=== PATIENT | male | born 1980 | race Caucasian/White ===

== ENCOUNTER 2017-04-15 19:31 | Observation (INO) | payer OTHER ==
[~2017-04-15] VITALS: Ht 175.3 cm; Wt 82.6 kg
[2017-04-15] MEDS ORDERED: DILTIAZEM 25 MG/5 ML INJ (CARDIZEM) VIAL ONE (19:39)
[2017-04-15] MEDS ORDERED: DILTIAZEM 100 MG/VIAL (CARDIZEM) ADD-VANTAGE IV ONE (19:39)
[2017-04-15] MEDS ORDERED: SODIUM CHLORIDE (ADD-VANTAGE) 100 ML IV ONE (19:39)
[2017-04-15] MEDS ORDERED: NS IV 1000 ML 1,000 ML IV ONE ×2 (19:43→20:06)
--- NOTE | 2017-04-15 19:43 | ED Cardiac General ---
History of Present Illness General Stated Complaint: IRREGULAR HEARTBEAT Source: patient Exam Limitations: no limitations History of Present Illness Time seen by provider: 19:39 Initial Comments Patient presents to ER by private conveyance with chief complaint of heart racing that started approximately one day before. He says he's had this in the past but easily male would get out by doing vagal maneuvers. He's been trying the best day as well as resting and has not been able to get it better. At home he says his heart rate was running in the 180s to 220s. He says he has a history of Zrykb-Xiteliaal-Prznf. He is not on any medications not have any other current medical history or history of coronary disease. He does smoke half pack a day. He is having chest pressure in the middle of his chest and feels tired. No shortness of breath nausea or vomiting. No numbness or weakness. Allergies and Home Medications Allergies Coded Allergies: No Known Drug Allergies (Unverified , 04/15/17) Review of Systems Constitutional: No chills, No diaphoresis, No fever, No malaise, weakness EENTM: No Blurred Vision, No Double Vision Respiratory: Denies Cough, Denies Shortness of Air, Denies SOA With Exertion, Denies Wheezing Cardiovascular: See HPI (chest pressure), Denies Chest Pain, Denies Edema, Irregular Heart Rate, Lightheadedness, Palpitations, Denies Syncope Gastrointestinal: Denies Abdomen Distended, Denies Abdominal Pain, Denies Diarrhea, Denies Nausea Genitourinary: Denies Burning, Denies Discharge Musculoskeletal: No joint pain, No joint swelling Skin: No pruritus, No rash Psychiatric/Neurological: Denies Headache, Denies Numbness Endocrine: Denies Intolerance to Cold, Denies Intolerance to Heat, Denies Unexplained Weight Gain, Denies Unexplaned Weight Loss Past Gjbnrdl-Mhncha-Clcxhj Hx Patient Social History Alcohol Use: Denies Use Recreational Drug Use: No Smoking Status: Current Everyday Smoker Type Used: Cigarettes (one half pack per day) Recent Foreign Travel: No Contact w/Someone Who Travel: No Physical Exam Vital Signs Vital Sign - Last 12Hours 04/15/17 19:36 Temp 97.5 Pulse 217 Resp 18 B/P (MAP) 107/82 Pulse Ox 99 O2 Delivery Room Air Capillary Refill : Less than 3 seconds General Appearance: WD/WN, Mild Distress HEENT: PERRL/EOMI, Pharynx Normal Neck: Normal Inspection, Non Tender Respiratory: Lungs Clear, Normal Breath Sounds Cardiovascular: No Edema, No Murmur, Tachycardia Gastrointestinal: Non Tender, Soft Extremity: Normal Capillary Refill, No Calf Tenderness Neurologic/Psychiatric: Alert, Oriented x3, Normal Mood/Affect Skin: Normal Color, Warm/Dry Lymphatic: No Adenopathy Procedure: synced cardioversion Patient Education: Explained Benefits, Explained Risks, Pt. Ack. Understanding Agreement on procedure with pt: Yes Breath Sounds per Auscultation: Clear Heart Sounds per Auscultation: Irregular Airway Exam: Mouth opens >2 fingers, Neck Full Range of Motion, Visulation of Uvula Sedation Adminstration Time: 20:25 Total Time spent in CS 5 min Progress/Conclusion The nursing notes for dosing on fentanyl and Versed given to achieve a good relaxed state where shock could be delivered 1. Re-examination Time: 20:40 Re-examination Patient arouses easily to verbal and follows commands. No snoring. Airway intact. Vital signs normal. Progress/Results/Core Measures Results/Orders Lab Results Laboratory Tests Test 04/15/17 19:44 Range/Units White Blood Count 10.2 4.3-11.0 10^3/uL Red Blood Count 5.26 4.35-5.85 10^6/uL Hemoglobin 16.5 13.3-17.7 G/DL Hematocrit 48 40-54 % Mean Corpuscular Volume 91 80-99 FL Mean Corpuscular Hemoglobin 31 25-34 PG Mean Corpuscular Hemoglobin Concent 35 32-36 G/DL Red Cell Distribution Width 12.6 10.0-14.5 % Platelet Count 297 130-400 10^3/uL Mean Platelet Volume 10.9 H 7.4-10.4 FL Neutrophils (%) (Auto) 56 42-75 % Lymphocytes (%) (Auto) 30 12-44 % Monocytes (%) (Auto) 10 0-12 % Eosinophils (%) (Auto) 3 0-10 % Basophils (%) (Auto) 1 0-10 % Neutrophils # (Auto) 5.6 1.8-7.8 X 10^3 Lymphocytes # (Auto) 3.1 1.0-4.0 X 10^3 Monocytes # (Auto) 1.0 0.0-1.0 X 10^3 Eosinophils # (Auto) 0.3 0.0-0.3 10^3/uL Basophils # (Auto) 0.1 0.0-0.1 10^3/uL Sodium Level 140 135-145 MMOL/L Potassium Level 4.3 3.6-5.0 MMOL/L Chloride Level 105 98-107 MMOL/L Carbon Dioxide Level 23 21-32 MMOL/L Anion Gap 12 5-14 MMOL/L Blood Urea Nitrogen 15 7-18 MG/DL Creatinine 1.34 H 0.60-1.30 MG/DL Estimat Glomerular Filtration Rate > 60 BUN/Creatinine Ratio 11 Glucose Level 96 70-105 MG/DL Calcium Level 10.2 H 8.5-10.1 MG/DL Magnesium Level 2.1 1.8-2.4 MG/DL Total Bilirubin 1.1 H 0.1-1.0 MG/DL Aspartate Amino Transf (AST/SGOT) 18 5-34 U/L Alanine Aminotransferase (ALT/SGPT) 14 0-55 U/L Alkaline Phosphatase 61 40-136 U/L Troponin I < 0.30 <0.30 NG/ML Total Protein 7.4 6.4-8.2 GM/DL Albumin 4.7 H 3.2-4.5 GM/DL Thyroid Stimulating Hormone (TSH) 1.58 0.35-4.94 UIU/ML My Orders Orders - RENEE SEO Diltiazem Injection (Cardizem Injection) (04/15/17 19:45) Cbc With Automated Diff (04/15/17 19:43) Comprehensive Metabolic Panel (04/15/17 19:43) Magnesium (04/15/17 19:43) Thyroid Stimulating Hormone (04/15/17 19:43) Troponin I (04/15/17 19:43) Chest 1 View, Ap/Pa Only (04/15/17 19:43) Ekg Tracing (04/15/17 19:43) Saline Lock/Iv-Start (04/15/17 19:43) Monitor-Rhythm Ecg Trace Only (04/15/17 19:43) Saline Lock/Iv-Start (04/15/17 19:43) Ns Iv 1000 Ml (Sodium Chloride 0.9%) (04/15/17 19:43) Sodium Chloride (Ad... W/Diltiazem Drip (04/15/17 19:45) Diltiazem Injection (Cardizem Injection) (04/15/17 19:39) Sodium Chloride (Add-[place]) (Ns (Add-V (04/15/17 19:39) Diltiazem Drip (Cardizem Drip) (04/15/17 19:39) Diltiazem Injection (Cardizem Injection) (04/15/17 20:00) Promethazine Injection (Phenergan Injec (04/15/17 20:15) Ns Iv 1000 Ml (Sodium Chloride 0.9%) (04/15/17 20:06) Ns Iv 1000 Ml (Sodium Chloride 0.9%) (04/15/17 20:45) Medications Given in ED Current Medications Medications Dose Ordered Sig/Louise Route Start Time Stop Time Status Last Admin Dose Admin Sodium Chloride 1,000 ml @ 0 mls/hr Q0M ONCE IV 04/15/17 19:43 04/15/17 19:45 DC 04/15/17 20:12 1,000 MLS/HR Sodium Chloride 1,000 ml @ 0 mls/hr Q0M ONCE IV 04/15/17 20:06 04/15/17 20:08 DC 04/15/17 19:57 1,000 MLS/HR Vital Signs/I&O Vital Sign - Last 12Hours 04/15/17 19:36 Temp 97.5 Pulse 217 Resp 18 B/P (MAP) 107/82 Pulse Ox 99 O2 Delivery Room Air Progress Note : Time: 19:55 Progress Note Patient states he has a history of Raeqv-Nzxsxoyfb-Gmudh come in with 1 day of tachycardia. He is in SVT with marginally wide complexes. We have given him the first initial bolus of weight-based Cardizem and started a drip at 10 mils per min and if this does not improve in the first 10 minutes we'll going give him a second bolus of 0.350 mg/kg over 2 minutes. Of some chest pressure the patient is otherwise stable. His blood pressure right around 100s systolic aware pushing fluids. Serum get him out of SVT medicine or his blood pressure will improve. Consults Consults : Consulting Physician: JESSICA HUDSON MD Consults Notes Determine the patient to be in a wide-complex tachycardia unstable given his systolic blood pressure of 98 so conscious sedation was initiated using Versed and fentanyl and the patient was given 1 synced cardioversion shock of 120 J which immediately returned him to a normal atrial paced rhythm. Patient tolerated procedure well. Critical Care Note Critical Care Start Time: 20:00 Stop Time: 20:30 Total Time (minutes) Patient presented and a SVT with what appeared to be narrow complexes. Initial 0.25 mg/kg Cardizem was pushed but no benefit and his heart rate remained in the 180s. His systolic state right about 100-110. He was given another 0.35 mg/ kg gram of Cardizem and his heart rate remained in the 180s to 200 range. His systolic slipped into the 90s. EKG revealed a QRS of 124 ms which would indicate a wide complex tachycardia that was irregular more consistent with atrial fibrillation driven through the aberrant clinical pathway. Dr. Hudson was called and presented to the ER examine the patient and the EKG and determined that he was an unstable irregular wide complex tachycardia in need of cardioversion. Paddles were on him and gave him fentanyl and Versed to sedate him and gave him 120 J single phase cardioversion shock. He immediately converted into a sinus rhythm around 98. He tolerated the procedure well. Departure Communication Time/Spoke to Admitting Phy: 20:[address] Hudson will admit the patient to cardiac stepdown and follow him overnight. He is okay with IV fluids and leg the patient eat drinking get move around. It is doing well in the morning they'll let him go home. Impression Impression: Primary Impression: Wide-complex tachycardia Additional Impressions: Patricia Parkinson White pattern seen on electrocardiogram Encounter for cardioversion procedure Disposition: ADMITTED INPATIENT (observation cardiac stepdown) Condition: Improved Admissions Decision to Admit Reason: Admit from ER (General) Decision to Admit/Date: Apr 15, 2017 Time/Decision to Admit Time: 20:41 Departure-Patient Inst. Referrals: NO,LOCAL PHYSICIAN (PCP/Family) Primary Care Physician Copy Copies To 1: JESSICA HUDSON MD, TITUS J Apr 15, 2017 19:43
[2017-04-15] MEDS ORDERED: DILTIAZEM DRIP 100 MG in SODIUM CHLORIDE (ADD-VANTAGE) 100 ML IV SCH (19:45)
[2017-04-15] MEDS ORDERED: fentaNYL INJECTION 100 MCG/2 ML AMP INJ ONE (19:45)
[2017-04-15] MEDS ORDERED: MIDAZOLAM 5 MG/5 ML (VERSED) VIAL INJ ONE (19:45)
[2017-04-15] MEDS ORDERED: DILTIAZEM 25 MG/5 ML INJ (CARDIZEM) VIAL IVP ONE ×2 (19:45→20:00)
[2017-04-15 19:53] LABS: BASOPHILS # (AUTO) 0.1 10^3/uL (0.0-0.1); BASOPHILS % (AUTO) 1 % (0-10); EOSINOPHILS # (AUTO) 0.3 10^3/uL (0.0-0.3); EOSINOPHILS % (AUTO) 3 % (0-10); LYMPHOCYTES # (AUTO) 3.1 X 10^3 (1.0-4.0); LYMPHOCYTES % (AUTO) 30 % (12-44); MEAN CORPUSCULAR HEMOGLOBIN 31 PG (25-34); MEAN CORPUSCULAR HGB CONC 35 G/DL (32-36); MEAN CORPUSCULAR VOLUME 91 FL (80-99); MEAN PLATELET VOLUME 10.9 FL (7.4-10.4); MONOCYTES % (AUTO) 10 % (0-12); NEUTROPHILS # (AUTO) 5.6 X 10^3 (1.8-7.8); NEUTROPHILS % (AUTO) 56 % (42-75); PLATELET COUNT 297 10^3/uL (130-400); RED BLOOD COUNT 5.26 10^6/uL (4.35-5.85); RED CELL DISTRIBUTION WIDTH 12.6 % (10.0-14.5); WHITE BLOOD COUNT 10.2 10^3/uL (4.3-11.0)
[2017-04-15] MEDS ORDERED: PROMETHAZINE INJ 25 MG/ML (PHENERGAN) AMP IVP ONE (20:15)
[2017-04-15 20:26] LABS: ALANINE AMINOTRANSFERASE 14 U/L (0-55); ALBUMIN 4.7 GM/DL (3.2-4.5); ANION GAP 12 MMOL/L (5-14); ASPARTATE AMINO TRANSFERASE 18 U/L (5-34); BILIRUBIN,TOTAL 1.1 MG/DL (0.1-1.0); BLOOD UREA NITROGEN 15 MG/DL (7-18); BUN/CREATININE RATIO 11; CALCIUM 10.2 MG/DL (8.5-10.1); CARBON DIOXIDE 23 MMOL/L (21-32); CHLORIDE 105 MMOL/L (98-107); CREATININE SERUM 1.34 MG/DL (0.60-1.30); GFR ESTIMATED > 60; GLUCOSE 96 MG/DL (70-105); MAGNESIUM 2.1 MG/DL (1.8-2.4); POTASSIUM 4.3 MMOL/L (3.6-5.0); SODIUM 140 MMOL/L (135-145); TOTAL PROTEIN 7.4 GM/DL (6.4-8.2)
--- NOTE | 2017-04-15 20:40 | Cardiology History & Physical ---
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 Was in his usual state of health, started having palpitation around 10 a.m., continue to have palpitation and some chest tightness, came into the emergency room and noted to have wide- complex tachycardia with a heart rate 160-180, variable rate, irregular, had mild chest discomfort, denied any similar episode in the past, reported that he has history of WPW in the remote past which did not interfere with his life. Had occasional palpitation. No syncope or near syncopal episodes. No claudications. Patient was started on Cardizem drip in the emergency room and he was borderline hypotensive. Upon my evaluation I felt that it is wide- complex tachycardia requiring electrical cardioversion. PMH-Cardiology Other PMHx Other PMHx: WPW Social History Patient Social History Marrital Status: domestic partnership Employed/Student: employed Alcohol Use: Denies Use Recreational Drug Use: No Smoking: Current every day smoker Recent Foreign Travel: No Contact w/other who traveled: No Family Hx Other Noncontributory to his current condition ROS-Cardiology Review of Systems General: No Chills, No Night Sweats, No Fatigue, No Malaise, No Appetite HEENT: No Head Aches, No Visual Changes, No Eye Pain, No Ear Pain, No Dysphasia , No Sinus Congestion, No Post Nasal Drip, No Sore Throat Pulmonary: No Dyspnea, No Cough, No Pleuritic Chest Pain Cardiovascular: Chest Pain, Palpitations, No: Edema, Lt Headedness, Orthopnea, Paroxysmal Noc. Dyspnea Gastrointestinal: No: Abdominal Pain, Constipation, Diarrhea, Hematochezia, Melena, Nausea, Vomiting Genitourinary: No Dysuria, No Frequency, No Incontinence, No Hematuria, No Retention Musculoskeletal: No: arm pain, back pain, foot pain, hand pain, leg pain, neck pain, shoulder pain Neurological: No: Change in speech, Confusion, Incoordination, Numbness, Seizures, Weakness Home Medications & Allergies Allergies: Coded Allergies: No Known Drug Allergies (Unverified , 04/15/17) Home Medication List Reviewed: Yes Exam-Cardiology Exam General Appearance: Alert, Oriented X3, Cooperative, No Acute Distress HEENT: Atraumatic, PERRLA Respiratory: Clear to Auscultation, Normal Air Movement Cardiovascular: Normal S1, Normal S2, No Murmurs, Other (tachycardia) Abdominal: Normal Bowel Sounds, Soft, No Tenderness, No Hepatosplenomegaly, No Masses Extremities: No Clubbing, No Cyanosis, No Edema, Normal Pulses, No Tenderness/ Swelling Skin: No Rashes, No Breakdown, No Significant Lesion Neuro: Normal Gait, Normal Speech, Strength at 5/5 X4 Ext, Normal Tone, Sensation Intact Psych/Mental Status: Mental Status NL, Mood NL Results Labs Labs Laboratory Tests 04/15/17 19:44: White Blood Count 10.2, Red Blood Count 5.26, Hemoglobin 16.5, Hematocrit 48, Mean Corpuscular Volume 91, Mean Corpuscular Hemoglobin 31, Mean Corpuscular Hemoglobin Concent 35, Red Cell Distribution Width 12.6, Platelet Count 297, Mean Platelet Volume 10.9H, Neutrophils (%) (Auto) 56, Lymphocytes (%) (Auto) 30 , Monocytes (%) (Auto) 10, Eosinophils (%) (Auto) 3, Basophils (%) (Auto) 1, Neutrophils # (Auto) 5.6, Lymphocytes # (Auto) 3.1, Monocytes # (Auto) 1.0, Eosinophils # (Auto) 0.3, Basophils # (Auto) 0.1, Sodium Level 140, Potassium Level 4.3, Chloride Level 105, Carbon Dioxide Level 23, Anion Gap 12, Blood Urea Nitrogen 15, Creatinine 1.34H, Estimat Glomerular Filtration Rate > 60, BUN /Creatinine Ratio 11, Glucose Level 96, Calcium Level 10.2H, Magnesium Level 2.1 , Total Bilirubin 1.1H, Aspartate Amino Transf (AST/SGOT) 18, Alanine Aminotransferase (ALT/SGPT) 14, Alkaline Phosphatase 61, Total Protein 7.4, Albumin 4.7H A/P-Cardiology Admission Diagnosis Wide-complex tachycardia WPW Chest pain nonspecific etiology Palpitation Assessment/Plan Wide-complex tachycardia, WPW, probably atrial fibrillation with aberrant conduction. Borderline hypotensive, I proceeded with electrical cardioversion which was successful. Patient return to sinus rhythm, asymptomatic Tobaccoism, educated on smoking cessation Chest pain, secondary to tachycardia. Continue to monitor overnight Palpitation, secondary to tachycardia. Improved JESSICA HUDSON MD Apr 15, 2017 20:40
--- NOTE | 2017-04-15 20:41 | Cardiac Procedure Note-CS/ASA ---
Pre-Procedure Note Pre-Op Procedure Note H&P Reviewed The H&P was reviewed, patient examined and no changes noted. Date H&P Reviewed: Apr 15, 2017 Time H&P Reviewed: 20:00 Conscious Sedation Pre-Proced Time Reviewed: 20:00 ASA Class: 3 Airway Mallampati Classification: (sauk-[place] appropriate class) I. II. III, IV Lungs Heart ASA score ASA 1: a normal healthy patient ASA 2: a patient with a mild systemic disease (mid diabetes, controlled hypertension, obesity x ASA 3: a patient with a severe systemic disease that limits activity (angina , COPD, prior Myocardial infarction) ASA 4: a patient with an incapacitating disease that is a constant threat to life (CHF, renal failure) ASA 5: a moribund patient not expected to survive 24 hrs. (ruptured aneurysm) ASA 6: a declared brain patient whose organs are being harvested. For emergent operations, add the letter E after the classification Grade 3 Sedation Plan: Analgesia, Amnesia, Plan communicated to team members, Discussed options with patient/fam, Discussed risks with patient/fam Note The patient is an appropriate candidate to undergo the planned procedure, sedation, and anesthesia. The patient immediately re-assessed prior to indication. JESSICA HUDSON MD Apr 15, 2017 20:41
--- NOTE | 2017-04-15 20:42 | Cardiac Procedure Note ---
Cardiology Procedures Date of Procedure 04/15/17 Electrical cardioversion Patient was sedated using 4 mg of Versed, 50 mg of fentanyl, synchronized DC cardioversion delivered at 120 J successful in terminating wide-complex tachycardia return to sinus rhythm, EKG showed sinus rhythm with WPW Conclusion Successful electrical cardioversion without complication JESSICA HUDSON MD Apr 15, 2017 20:42
[2017-04-15] MEDS ORDERED: NS IV 1000 ML 1,000 ML IV SCH (20:45)
[2017-04-15 20:46] LABS: THYROID STIMULATING HORMONE 1.58 UIU/ML (0.35-4.94); TROPONIN I < 0.30 NG/ML (<0.30)
--- NOTE | 2017-04-15 21:10 | Diagnostic Imaging Report ---
INDICATION: Supraventricular tachycardia. COMPARISON: None. EXAMINATION: Single frontal view of the chest was obtained. FINDINGS: Normal heart size and pulmonary vascularity. The lungs are well aerated and clear. No large pleural effusion or pneumothorax is seen. The visualized osseous structures show no acute abnormalities. IMPRESSION: No acute cardiopulmonary process. Dictated by: Dictated on workstation # [id number]
[2017-04-15] MEDS ORDERED: ONDANSETRON 4 MG/2 ML (SDV) Z0FRAN IV PRN (22:00)
[2017-04-15] MEDS ORDERED: ACETAMINOPHEN 325 MG TABLET/CAPLET (TYLENOL) PO PRN (22:00)
[2017-04-15] MEDS: NS IV 1000 ML 1,000 ML IV SCH ×2 (22:15→23:31)
[2017-04-15] MEDS ORDERED: ENOXAPARIN 80 MG/0.8 ML (LOVENOX) SYR SC ONE (22:45)
[2017-04-16] VITALS: BP 108/72
[2017-04-16 04:00] VITALS: BP 110/80
[2017-04-16] MEDS ORDERED: DILTIAZEM 25 MG/5 ML INJ (CARDIZEM) VIAL IVP ONE (04:15)
[2017-04-16] MEDS ORDERED: DILTIAZEM DRIP 100 MG in SODIUM CHLORIDE (ADD-VANTAGE) 100 ML IV SCH (04:15)
[2017-04-16 05:45] LABS: BASOPHILS % (AUTO) 1 % (0-10); EOSINOPHILS # (AUTO) 0.3 10^3/uL (0.0-0.3); EOSINOPHILS % (AUTO) 4 % (0-10); LYMPHOCYTES % (AUTO) 39 % (12-44); MEAN CORPUSCULAR HEMOGLOBIN 32 PG (25-34); MEAN CORPUSCULAR HGB CONC 34 G/DL (32-36); MEAN CORPUSCULAR VOLUME 93 FL (80-99); MEAN PLATELET VOLUME 11.3 FL (7.4-10.4); MONOCYTES # (AUTO) 0.5 X 10^3 (0.0-1.0); MONOCYTES % (AUTO) 7 % (0-12); NEUTROPHILS # (AUTO) 3.8 X 10^3 (1.8-7.8); NEUTROPHILS % (AUTO) 50 % (42-75); PLATELET COUNT 223 10^3/uL (130-400); RED CELL DISTRIBUTION WIDTH 12.6 % (10.0-14.5); WHITE BLOOD COUNT 7.7 10^3/uL (4.3-11.0)
[2017-04-16 06:03] LABS: ANION GAP 10 MMOL/L (5-14); BLOOD UREA NITROGEN 17 MG/DL (7-18); BUN/CREATININE RATIO 17; CALCIUM 8.1 MG/DL (8.5-10.1); CARBON DIOXIDE 21 MMOL/L (21-32); CHLORIDE 110 MMOL/L (98-107); CREATININE SERUM 0.98 MG/DL (0.60-1.30); GFR ESTIMATED > 60; GLUCOSE 111 MG/DL (70-105); POTASSIUM 3.8 MMOL/L (3.6-5.0); SODIUM 141 MMOL/L (135-145)
[2017-04-16 06:16] LABS: TROPONIN I < 0.30 NG/ML (<0.30)
[2017-04-16 08:00] VITALS: BP 110/75
--- NOTE | 2017-04-16 09:22 | Short Stay Summary ---
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 Was in his usual state of health, started having palpitation around 10 a.m., continue to have palpitation and some chest tightness, came into the emergency room and noted to have wide- complex tachycardia with a heart rate 160-180, variable rate, irregular, had mild chest discomfort, denied any similar episode in the past, reported that he has history of WPW in the remote past which did not interfere with his life. Had occasional palpitation. No syncope or near syncopal episodes. No claudications. Patient was started on Cardizem drip in the emergency room and he was borderline hypotensive. Upon my evaluation I felt that it is wide- complex tachycardia requiring electrical cardioversion. Patient was monitored overnight no further episodes of tachycardia arrhythmia were noted Date of Admission Apr 15, 2017 at 20:40 Date of Discharge April 16, 2017 Time Seen by Provider: 09:26 Attending Physician Jessica Fields MD Admitting Physician No,Local Physician Consult JESSICA FIELDS MD Allergies and Home Medications Allergies Coded Allergies: No Known Drug Allergies (Unverified , 04/15/17) Home Medications No Active Prescriptions or Reported Meds Past Rqekica-Ejswqn-Uufbnh Hx Patient Social History Marrital Status: domestic partnership Employed/Student: employed Alcohol Use: Denies Use Recreational Drug Use: No Smoking Status: Current Everyday Smoker Type Used: Cigarettes Physical Abuse Screen: No Sexual Abuse: No Recent Foreign Travel: No Contact w/other who traveled: No Recent Hopitalizations: No Recent Infectious Disease Expo: No Seasonal Allergies Seasonal Allergies: No Constitutional: see HPI EENTM: see HPI Respiratory: see HPI Cardiovascular: see HPI Gastrointestinal: see HPI Genitourinary: see HPI Musculoskeletal: see HPI Skin: see HPI Psychiatric/Neurological: No Symptoms Reported, See HPI Physical Exam Vital Signs Vital Sign - Last 12Hours 04/15/17 04/15/17 19:36 20:16 Temp 97.5 Pulse 217 Resp 18 B/P (MAP) 107/82 Pulse Ox 99 O2 Delivery Room Air O2 Flow Rate 2.00 Capillary Refill : Less Than 3 Seconds General Appearance: No Apparent Distress, WD/WN Eyes: Bilateral Eye EOMI, Bilateral Eye Normal Inspection, Bilateral Eye PERRL HEENT: PERRL/EOMI, TMs Normal, Normal ENT Inspection, Pharynx Normal Neck: Full Range of Motion, Normal Inspection, Non Tender, Supple, Carotid Bruit Respiratory: Chest Non Tender, Lungs Clear, Normal Breath Sounds, No Accessory Muscle Use, No Respiratory Distress Cardiovascular: Regular Rate, Rhythm, No Edema, No Gallop, No JVD, No Murmur, Normal Peripheral Pulses Gastrointestinal: Normal Bowel Sounds, No Organomegaly, No Pulsatile Mass, Non Tender, Soft Back: Normal Inspection, No CVA Tenderness, No Vertebral Tenderness Extremity: Normal Capillary Refill, Normal Inspection, Normal Range of Motion, Non Tender, No Calf Tenderness, No Pedal Edema Neurologic/Psychiatric: Alert, Oriented x3, No Motor/Sensory Deficits, Normal Mood/Affect Skin: Normal Color, Warm/Dry Lymphatic: No Adenopathy Clinical Quality Measures DVT/VTE Risk/Contraindication: Risk Factor Score Per Nursin RFS Level Per Nursing on Admit: 1=Low/No VTE PPX Short Stay Diagnosis Discharge Diagnosis-Short Stay Admission Diagnosis: WPW Tachycardia White complex tachycardia Chest pain nonspecific. Palpitation Final Discharge Diagnosis: wide-complex tachycardia WPW Chest pain nonspecific etiology Palpitation Conclusion Labs Laboratory Tests 04/15/17 19:44: White Blood Count 10.2, Red Blood Count 5.26, Hemoglobin 16.5, Hematocrit 48, Mean Corpuscular Volume 91, Mean Corpuscular Hemoglobin 31, Mean Corpuscular Hemoglobin Concent 35, Red Cell Distribution Width 12.6, Platelet Count 297, Mean Platelet Volume 10.9H, Neutrophils (%) (Auto) 56, Lymphocytes (%) (Auto) 30 , Monocytes (%) (Auto) 10, Eosinophils (%) (Auto) 3, Basophils (%) (Auto) 1, Neutrophils # (Auto) 5.6, Lymphocytes # (Auto) 3.1, Monocytes # (Auto) 1.0, Eosinophils # (Auto) 0.3, Basophils # (Auto) 0.1, Sodium Level 140, Potassium Level 4.3, Chloride Level 105, Carbon Dioxide Level 23, Anion Gap 12, Blood Urea Nitrogen 15, Creatinine 1.34H, Estimat Glomerular Filtration Rate > 60, BUN /Creatinine Ratio 11, Glucose Level 96, Calcium Level 10.2H, Magnesium Level 2.1 , Total Bilirubin 1.1H, Aspartate Amino Transf (AST/SGOT) 18, Alanine Aminotransferase (ALT/SGPT) 14, Alkaline Phosphatase 61, Troponin I < 0.30, Total Protein 7.4, Albumin 4.7H, Thyroid Stimulating Hormone (TSH) 1.58 04/16/17 04:55: White Blood Count 7.7, Red Blood Count 4.10L, Hemoglobin 13.1#L, Hematocrit 38L , Mean Corpuscular Volume 93, Mean Corpuscular Hemoglobin 32, Mean Corpuscular Hemoglobin Concent 34, Red Cell Distribution Width 12.6, Platelet Count 223, Mean Platelet Volume 11.3H, Neutrophils (%) (Auto) 50, Lymphocytes (%) (Auto) 39 , Monocytes (%) (Auto) 7, Eosinophils (%) (Auto) 4, Basophils (%) (Auto) 1, Neutrophils # (Auto) 3.8, Lymphocytes # (Auto) 3.0, Monocytes # (Auto) 0.5, Eosinophils # (Auto) 0.3, Basophils # (Auto) 0.0, Sodium Level 141, Potassium Level 3.8, Chloride Level 110H, Carbon Dioxide Level 21, Anion Gap 10, Blood Urea Nitrogen 17, Creatinine 0.98, Estimat Glomerular Filtration Rate > 60, BUN/ Creatinine Ratio 17, Glucose Level 111H, Calcium Level 8.1L, Troponin I < 0.30 Conclusion/Plan Wide-complex tachycardia, WPW, probably atrial fibrillation with aberrant conduction. status post electrical cardioversion, maintained sinus rhythm and no further dyspnea was noted Tobaccoism, educated on smoking cessation Chest pain, secondary to tachycardia. Continue to monitor overnight Palpitation, secondary to tachycardia. Improved JESSICA FIELDS MD Apr 16, 2017 09:22
[2017-04-16 10:12] VITALS: BP 110/75
== END 2017-04-16 09:28 | disposition home or self-care (01) ==
LOC: ER 19:35 → ICU 20:40 → UNDOADMOB 20:40 → ICU 21:43 → UNDODISOB 04-16 10:00
PROVIDERS: ADMIT Internal Medicine Cardiovascular Disease; ATTEND Internal Medicine Cardiovascular Disease
DX: R00.0 Tachycardia, unspecified (principal); I45.6 Pre-excitation syndrome; Z72.0 Tobacco use; R07.89 Other chest pain; R00.2 Palpitations
CPT/HCPCS: 36415; 71010; 80048; 80053; 83735; 84443; 84484; 85025; 85027; 92960; 93005; 93041; 96361; 96374; 99291

== ENCOUNTER → 2017-05-17 | Outpatient (CLI) | payer OTHER ==
[~2017-05-17] MED LIST: ASPI-586 PO
== END ==
LOC: CARD 13:54
PROVIDERS: ATTEND Physician Assistant
DX: I45.6 Pre-excitation syndrome (principal); I47.2 Ventricular tachycardia; R07.89 Other chest pain; R00.2 Palpitations
CPT/HCPCS: 93306

== ENCOUNTER → 2017-05-30 | Outpatient (CLI) | payer OTHER ==
[2017-05-30 10:14] LABS: RED BLOOD COUNT 4.72 10^6/uL (4.35-5.85); RED CELL DISTRIBUTION WIDTH 12.5 % (10.0-14.5); WHITE BLOOD COUNT 10.1 10^3/uL (4.3-11.0)
[2017-05-30 10:31] LABS: ANION GAP 9 MMOL/L (5-14); BLOOD UREA NITROGEN 13 MG/DL (7-18); BUN/CREATININE RATIO 12; CALCIUM 9.4 MG/DL (8.5-10.1); CARBON DIOXIDE 27 MMOL/L (21-32); CHLORIDE 106 MMOL/L (98-107); CREATININE SERUM 1.11 MG/DL (0.60-1.30); GFR ESTIMATED > 60; GLUCOSE 69 MG/DL (70-105); SODIUM 142 MMOL/L (135-145)
== END ==
LOC: LAB 10:01
PROVIDERS: ATTEND Internal Medicine Cardiovascular Disease
DX: I45.6 Pre-excitation syndrome (principal); Z01.812 Encounter for preprocedural laboratory examination
CPT/HCPCS: 36415; 80048; 83735; 85027

== ENCOUNTER 2017-06-22 10:36 | Emergency (ER) | payer OTHER ==
[~2017-06-22] VITALS: Ht 175.3 cm; Wt 81.6 kg
--- OUTSIDE RECORDS SUMMARY | 2017-06-22 10:41 | XMS REPORT | Continuity of Care Document ---
Author Author [employer] Organization [facility] Address Unknown Phone Unavailable Care Team Providers Care Grades 9 Thru 12 Visiting Teacher Name Role Phone [employer] Unavailable Unavailable Problems Medications Allergies, Adverse Reactions, Alerts Immunizations Results Vital Signs Encounters Location Location Details Encounter Type Encounter Number Reason For Visit Attending Provider ADM Date DC Date Status Source OUTPATIENT [id number] GUI DOS SANTOS 05/23/2017 Active [facility] EXT RECOVERY [id number] GUI DOS SANTOS 06/14/2017 06/15/2017 Active [facility] O Active [facility] Procedures Plan of Care Social History Assessment and Plan Family History Value Date Source Advance Directives Order Name Results Value Date Source
--- OUTSIDE RECORDS SUMMARY | 2017-06-22 10:42 | XMS REPORT | Encounter Summary ---
Author Author [facility] Organization [facility] Address Unknown Phone Unavailable Care Team Providers Care Non Categorical Preschool Teacher Name Role Phone PCP Unavailable Encounter Details Date Type Department Care Team Description 05/23/2017 Orders Only [facility] Gretchen Maloney RN WPW [address] [phone] (Uqmah-Vytxzlknr-Fwuyd Pravin G600 syndrome) ([place] [address] Dx);Pre-procedure lab [phone] exam Social History Tobacco Use Types Packs/Day Years Used Date Current Every Day Smoker Cigarettes 1 Smokeless Tobacco: Never Used Alcohol Use Drinks/Week oz/Week Comments No Sex Assigned at Date Recorded Not on file as of this encounter Plan of Treatment Not on fileas of this encounter Results * MAGNESIUM (06/01/2017) Component Value Ref Range Magnesium 2.0 Specimen Performing Laboratory Blood [facility] [address] [place] [address] Narrative Pre procedure labs- WNL * BASIC METABOLIC PANEL (06/01/2017) Component Value Ref Range Sodium 142 Potassium 4.0 Chloride 106 CO2 27 Blood Urea Nitrogen 13 Creatinine 1.11 Glucose 69 Calcium 9.4 eGFR Non >60 eGFR Anion Gap Specimen Performing Laboratory Blood [facility] [address] [place] [address] Narrative Pre proc labs WNL * CBC (06/01/2017) Component Value Ref Range White Blood Cells 10.1 RBC 4.72 Hemoglobin 14.9 Hematocrit 44 MCV 93 MCH 32 MCHC 34 Platelet Count 272 MPV 10 RDW 12.5 Specimen Performing Laboratory Blood [facility] [address] [place] [address] Narrative Pre proc lab WNL in this encounter Visit Diagnoses 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
--- OUTSIDE RECORDS SUMMARY | 2017-06-22 10:42 | XMS REPORT | Encounter Summary ---
Author Author [facility] Organization [facility] Address Unknown Phone Unavailable Care Team Providers Care Wastewater Treatment Operator Name Role Phone PCP Unavailable Reason for Visit * Reason Comments Incisional Pain post SVT ablation Encounter Details Date Type Department Care Team Description 06/21/[address] [facility] Cardiology Susana Lancaster RN Incisional Pain (post SVT [address] ablation) [address] [place] [address] Social History Tobacco Use Types Packs/Day Years Used Date Current Every Day Smoker Cigarettes 1 Smokeless Tobacco: Never Used Alcohol Use Drinks/Week oz/Week Comments No Sex Assigned at Date Recorded Not on file as of this encounter Miscellaneous Notes * Telephone Encounter - Susana Lancaster RN - 06/21/2017 4:00 PM CDT Called patient back to discuss. Patient states pain is left groin side and pain is going towards hip and abdomen. Patient states that the sites "seem to be healing fine" with a little bit of redness around. Reviewed with MPE who is agreeable that patient should head to ED as he is getting no pain relief with tylenol. Patient states he is agreeable and will go to [facility]. * Telephone Encounter - Susana Lancaster RN - 06/21/2017 3:59 PM CDT ----- Message from Vera Herrera sent at 06/21/2017 2:43 PM CDT ----- Patient is in a lot of pain around the incision area. # [phone] in this encounter Plan of Treatment Not on fileas of this encounter Visit Diagnoses Not on filein this encounter
--- OUTSIDE RECORDS SUMMARY | 2017-06-22 10:42 | XMS REPORT | Encounter Summary ---
Author Author [facility] Organization [facility] Address Unknown Phone Unavailable Care Team Providers Care Supervisor Metal Furniture Fabrication Name Role Phone PCP Unavailable Reason for Visit * Auth/Cert (Routine) Status Reason Specialty Diagnoses / Referred By Referred To Procedures Contact Contact Encounter Details Date Type Department Care Team Description 06/14/2017 Hospital Cardiac Catheterization Prakash Hernandez MD WPW - Encounter Laboratory [address] (Xoobw-Tgtoefqka-Zyttl 06/15/[address] [place] 4023 syndrome) [place] [address] [place] [address] [phone] Social History Tobacco Use Types Packs/Day Years Used Date Current Every Day Smoker Cigarettes 1 Smokeless Tobacco: Never Used Alcohol Use Drinks/Week oz/Week Comments No Sex Assigned at Date Recorded Not on file as of this encounter Last Filed Vital Signs Vital Sign Reading Time Taken Blood Pressure 130/90 06/15/2017 9:54 AM CDT Pulse 69 06/15/2017 9:54 AM CDT Temperature 36.5 C (97.7 F) 06/15/2017 9:54 AM CDT Respiratory Rate - - Oxygen Saturation 90% 06/15/2017 9:54 AM CDT Inhaled Oxygen - - Concentration Weight 81.1 kg (178 lb 14.4 oz) 06/14/2017 9:16 AM CDT Height 175.3 cm (5' 9") 06/14/2017 9:16 AM CDT Body Mass Index 26.42 06/14/2017 9:16 AM CDT in this encounter Medications at Time of Discharge Medication Sig. Disp. Refills Start Date End Date acetaminophen (TYLENOL) Take 1-2 tablets by mouth 0 06/15/2017 325 mg tablet every 4 hours as needed. aspirin EC 81 mg tablet Take 1 tablet by mouth 90 tablet 3 06/15/2017 07/15/2017 daily for 30 days. Take with food 1 month post procedure as of this encounter Progress Notes * Damien Valerio RN - 06/15/2017 10:26 AM CDT Patient discharged to home with all belongings. Discharge instructions, med reconciliation and home wound care instructions given and explained to patient and family both verbally and written. Accompanied by family. No complaints of pain or discomfort. Right and left groins remains clean, dry, and intact with no evidence of a hematoma after ambulation. [facility]. Patient to follow up with [facility] ([facility]) or on-call physician with any additional questions or concerns. All contact numbers provided. Patient and family acceptant of DC instuctions and report understanding to all information. * Prakash Hernandez MD - 06/14/2017 7:05 PM CDT Cardiac Electrophysiology Brief Post-Procedure Note Attending: Prakash Hernandez MD Preoperative diagnosis: WPW Postoperative diagnosis: same Procedure(s) Performed: RF Ablation of a Right Posterior Accessory Pathway -- WPW Procedure Description: Successful Patient had a repeat area baseline with a suggestion of a right posterior posterior septal pathway. Incremental atrial pacing showed increased preexcitation. Retrograde conduction showed earliest activation near the CS os. ORT was easily and reproducibly inducible with earliest retrograde activation CS 9, 10. Mapping of the posterior posterior septal region was performed. Earliest ventricular as well as retrograde atrial activation was in the RA at approximately 5:00 in an BURUNDIAN. At the successful site there was fusion of the A and V and during ORT that site was 20 secs earlier than ealiest CS and was 30 seconds pre-systolic/before onset of QRS. Loss of preexcitation occurred within 13 seconds of RF application Successful site was at 0500 in the BURUNDIAN view in the right atrium Post ablation there was evidence of dual AV marcelino physiology during incremental atrial pacing. Also onset of SVT occurred with a long AH interval. Isuprel up to 2 mcg/min post ablation of the accessory pathway showed no evidence of any reentry, rare Dual AV node physiology. No SVT. After 30 minutes of monitoring no return of accessory pathway function was present, no return of preexcitation. A. fib was induced, but that only occurred post elimination of the accessory pathway and was brief and nonsustained. On Isuprel no A. fib could be induced despite aggressive program stimulation/ pacing. Patient tolerated procedure well. Anesthesia: Moderate sedation via RN Estimated blood loss: 20 mL Complications: None Specimens removed: None Sheaths: A 7 Italian and 6 Fr sheath were placed in the right femoral vein, 3 x 6 Italian sheaths were placed in the left femoral vein. Catheters: 7 Italian sheath in the right femoral vein through which the mapping catheter was placed; 6 Italian sheath in the right femoral vein through which the CS catheter was placed; 6 Italian sheath in the left femoral vein. The RV apex catheter was placed; 6 Italian sheath in the left femoral vein through which the his catheter was placed; 6 Italian Sheath in the left femoral vein through which the RA catheter was placed Recommendations: - Please refer to post-procedure note for full recommendations - Pain control as needed - Remove sheaths - Follow Up with Dr. Hernandez in 3 months -No need for beta-denton or antiarrhythmic drug therapy at this point. * Katherine Chau RN - 06/14/2017 9:18 AM CDT 0910- Patient arrived on unit via ambulation accompanied by family. Patient transferred to the bed without assistance. Assessment completed, refer to flowsheet for details. Orders released, reviewed, and implemented as appropriate. Oriented to surroundings, call light within reach. Plan of care reviewed. Will continue to monitor and assess. in this encounter Plan of Treatment Not on fileas of this encounter Procedures Procedure Name Priority Date/Time Associated Diagnosis Comments ECG-SCAN 06/18/2017 Results for this 7:00 PM CDT procedure are in the results section. ECG-SCAN 06/18/2017 Results for this 7:00 PM CDT procedure are in the results section. in this encounter Results * ECG-SCAN (06/18/2017 7:00 PM) Narrative Ordered by an unspecified provider. * ECG-SCAN (06/18/2017 7:00 PM) Narrative Ordered by an unspecified provider. * BASIC METABOLIC PANEL (06/15/2017 3:30 AM) Component Value Ref Range Sodium 136 (L) 137 - 147 MMOL/L Potassium 3.8 3.5 - 5.1 MMOL/L Chloride 107 98 - 110 MMOL/L CO2 25 21 - 30 MMOL/L Anion Gap 4 3 - 12 Glucose 120 (H) 70 - 100 MG/DL Blood Urea Nitrogen 15 7 - 25 MG/DL Creatinine 0.92 0.4 - 1.24 MG/DL Calcium 8.7 8.5 - 10.6 MG/DL eGFR Non >60 >60 mL/min Comment: The eGFR is not validated for use in drug dosing adjustments. Continue to use estimated creatinine clearance per dosing reference text. Please contact the Clinical Pharmacist for questions. eGFR >60 >60 mL/min Comment: The eGFR is not validated for use in drug dosing adjustments. Continue to use estimated creatinine clearance per dosing reference text. Please contact the Clinical Pharmacist for questions. Specimen Performing Laboratory Blood MAIN [facility] [address] [place] [address] * CBC (06/15/2017 3:30 AM) Component Value Ref Range White Blood Cells 6.5 4.5 - 11.0 K/UL RBC 4.44 4.4 - 5.5 M/UL Hemoglobin 14.1 13.5 - 16.5 GM/DL Hematocrit 40.7 40 - 50 % MCV 91.8 80 - 100 FL MCH 31.7 26 - 34 PG MCHC 34.5 32.0 - 36.0 G/DL RDW 12.4 11 - 15 % Platelet Count 216 150 - 400 K/UL MPV 9.3 7 - 11 FL Specimen Performing Laboratory Blood [facility]IN [facility] [address] [place] [address] * POC ACTIVATED CLOTTING TIME (06/14/2017 7:22 PM) Component Value Ref Range Activated Clotting Time 154 s Specimen Performing Laboratory [facility] [address] [place] [address] * EP STUDY (06/14/2017 6:57 PM) Specimen Performing Laboratory OTHER OUTSIDE LAB Impressions : Accessory pathway located at 0500 on the TA 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 At the completion of the procedure, there was NO Evidence of a concealed AP and no SVT could be induced despite aggressive programmed stimulation and isuprel administration. AG Dual AVN Physiology noted POST RFA evidence of reentry.No echo beats, no SVT, etc. despite Isuprel administration. Post RFA-A. fib was induced, but that only occurred post elimination of the accessory pathway and was brief and nonsustained. PLAN: - Sheaths to be removed in recovery - Aspirin 325 mg daily x 1 month - Discontinue: B-denton - Follow Up with Dr. Hernandez in 3 months - No need for beta-denton or antiarrhythmic drug therapy at this point. Narrative ELECTROPHYSIOLOGY PROCEDURE PROCEDURES:Manifect WPWRight Posterior to PS Accessory Pathway Ablation EP study with CS catheter placement and pacing LA Pacing and Recording Right Accessory pathway ablation (Posterior) Supraventricular tachycardia ablation (Orthodromic reentrant tachycardia via a Right Posterioraccessory pathway) Intra-atrial pacing and intraventricular pacing. Bundle of HIS recording. 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 Procedure(s) Performed: RF Ablation of a Right Posterior Accessory Pathway --WPW Patient at baseline had pre-excitation pattern c/w with a probable right posterior posterior septal pathway. Incremental atrial pacing showed increased preexcitation.Retrograde conduction showed earliest activation near the CS os. ORT was easily and reproducibly inducible with earliest retrograde activation CS 9, 10 until mapped to 0500 on TA. Mapping of the posterior to posterior-septal region was performed. Earliest ventricular as well as retrograde atrial activation was in the RA atapproximately 5:00 in an BURUNDIAN. At the successful site there was fusion of the A and V and during ORT that site was 20 secs earlier than ealiest CS and was 30 seconds pre-systolic/before onset of QRS. Loss of preexcitation occurred within 13 seconds of RF application Successful site was at 0500 on the TA in the BURUNDIAN view in the right atrium Post ablation there was evidence of dual AV marcelino physiology during incremental atrial pacing.Also onset of SVT occurred with a long AH interval. Isuprel up to 2 mcg/min post ablation of the accessory pathway showed no evidence of any reentry, rare Dual AV node physiology.No SVT. After 30 minutes of monitoring no return of accessory pathway function was present, no return ofpreexcitation. A. fib was induced, but that only occurred post elimination of the accessory pathway and was brief and nonsustained. On Isuprel no A. fib could be induced despite aggressive program stimulation/pacing. Patient tolerated procedure well. ATTENDING: Prakash Hernandez M.D. NO Fellow INDICATION FOR PROCEDURE: Documented WPW with SVT PRESENTATING RHYTHM:Sinus rhythm with pre-excitation. CONSENT: The risks, benefits, indications and alternatives to the procedure were explained in detail with the patient and discussed at length prior to the procedure. The patient expressed understanding of the risks and consented to the procedure. All questions asked were answered and all permits were signed. SEDATION: The patient underwent moderate sedation using Versed and Fentanyl administered by a trained Registered Nurse whom I supervised. Continuous blood pressure, heart rate and O2 saturation monitoring with supplemental oxygen as needed was utilized throughout the procedure. ANESTHESIA: Marcaine 0.25% was injected into subcutaneous tissue for local anesthesia. OTHER MEDICATIONS: Isuprel at a maximum of 1 mcg/min was used with programmed stimulation. SETUP AND ACCESS: The patient was brought to the EP Lab in a fasting state after informed and written consent was obtained. Cardiac rhythm, blood pressure, heart rate, respirations, oxygen saturation and level of consciousness were monitored prior to, throughout and after the procedure. Moderate sedation was administered by trained staff members. The patient was placed supine on the fluoroscopy table, prepped and draped in the usual sterile fashion. Local anesthetic was provided. Venous access was obtained using amicropuncture needle in the right and left femoral veins under fluoroscopic/anatomic and ultrasound guidance using the modified Seldinger technique. Sheaths: A 7 Italian and 6 Fr sheath were placed in the right femoral vein, 3 x6 Italian sheaths were placed in the left femoral vein. CATHETERS USED: 1.EP Lori-curve hexapolar catheter placed via access with a 6 Italian sheath in the left femoral vein and advanced to the right ventricular apex. 2.EP His-curve quadrapolar catheter placed via access with a 6 Italian sheath in the left femoral vein and advanced to the His position. 3.EP Lori-curve quadrapolar catheter placed via access with a 6 Italian sheath in the left femoral vein and advanced to the high right atrium. 4.EP decapolar deflectable catheter placed via access with a 6 Italian sheath in the right femoral vein and advanced to the coronary sinus. 5.4.0 mm 5031 THK2 EPT mapping/ablation catheter placed via access with a 7 Italian sheath in the right femoral vein and advanced to the atrium to be used for mapping and ablation. EP STUDY AND ABLATION: Patient at baseline had pre-excitation pattern c/w with a probable right posterior posterior septal pathway. Incremental atrial pacing showed increased preexcitation.Retrograde conduction showed earliest activation near the CS os. ORT was easily and reproducibly inducible with earliest retrograde activation CS 9, 10 until mapped to 0500 on TA. Mapping of the posterior to posterior-septal region was performed. Earliest ventricular as well as retrograde atrial activation was in the RA atapproximately 5:00 in an BURUNDIAN. At the successful site there was fusion of the A and V and during ORT that site was 20 secs earlier than ealiest CS and was 30 seconds pre-systolic/before onset of QRS. Loss of preexcitation occurred within 13 seconds of RF application Successful site was at 0500 on the TA in the BURUNDIAN view in the right atrium Post ablation there was evidence of dual AV marcelino physiology during incremental atrial pacing.Also onset of SVT occurred with a long AH interval. Isuprel up to 2 mcg/min post ablation of the accessory pathway showed no evidence of any reentry, rare Dual AV node physiology.No SVT. After 30 minutes of monitoring no return of accessory pathway function was present, no return ofpreexcitation. A. fib was induced, but that only occurred post elimination of the accessory pathway and was brief and nonsustained. On Isuprel no A. fib could be induced despite aggressive program stimulation/pacing. Patient tolerated procedure well. ARRHYTHMIAS, MAPPING AND ABLATION: Arrhythmias Induced: A.O-AVRT -SVT GL=698 -Induction:IAP 280 and IVP at 300 and S-AES at 600/310 -Termination:Overdrive v-pacing and singel VPD -During SVT the Earliest RG atrial activation was the CS 9,10 but with mapping 0500 on TA -During SVT the VA time=94 ms -During SVT a sensed single VPD introduced when the His was refractory resulted in pre-excitation of the atrium. Completion of Study: After 30 minutes of monitoring with no AP present. Dual AV marcelino physiology was present only antegrade post elimination of the accessory pathway.However no evidence of reentry or SVT could be induced.That is despite Isuprel administration. The catheters were then removed and the patient was transported to the outpatient holding area with plans, when ACT<250, for removal of the sheaths with manual pressure held until adequate hemostasis was noted. The patient tolerated the procedure well, and left the EP lab in good condition. DRUG INFUSION: Isoproterenol 1 mcg/min was initiated for 10 minutes to attempt to induce other atrial arrhythmias. During this time, the patient had induction of no other arrhythmias. DIAGNOSTIC EP STUDY: Baseline: Surface QRS: Sinus CL 810 msec, MN interval 116msec, QRSd 125 msec, QT 438 msec. preexcitation present. AH interval 63 msec, HV interval 36 msec. AV Wenkebach: NA msec VA Wenkebach: NA msec. AV Node ERP: NAmsec Atrial ERP: 600/< 310 msec ACCESSORY PATHWAY FUNCTION: Antegrade accessory pathway block occurred at 280 ms with maximal preexcitation at 290 ms Retrograde accessory pathway Block could not be assessed as SVT was reproducibly induced at 310 ms Antegrade accessory pathway ERP was at 600/310 MS as this was the interval where SVT was reproducibly induced. Retrograde accessory pathway ERP was 600/less than 270 MS Post ablation no evidence of accessory pathway function was present. NO AFIB was induced when the AP was still present. AFIB was induced post AP Ablation--see above. Final Intervals Surface QRS: Sinus CL 740 msec, MN interval 162 msec, QRSd 98 msec, QT 431 msec. No bundle branch block and NO preexcitation present. AH interval 109 msec, HV interval 52 msec. AV Wenkebach: 270 msec VA Wenkebach: VA dissociation at all PCLs. AV Node ERP: 600/< 240msec Atrial ERP: 600/< 240 msec in this encounter Visit Diagnoses Diagnosis WPW (Vufid-Wjsqawuzx-Rzkpp syndrome) - Primary Anomalous atrioventricular excitation in this encounter Admitting Diagnoses Diagnosis Patricia Parkinson White, Supraventricular Tachycardia WPW (Oowhh-Dorwfsenk-Vvlwb syndrome) in this encounter Administered Medications Medication Order MAR Action Action Date Dose Rate Site fentaNYL citrate PF (SUBLIMAZE) Given 06/14/2017 50 mcg injection 25-75 mcg 20:37 CDT 25-75 mcg, Intravenous, EVERY 2 HOURS PRN, Starting Mon06/14/17 at 1922, Until Lara 06/15/17 at 1230, Pain Injectable Given 06/14/2017 50 mcg 23:10 CDT flecainide (TAMBOCOR) tablet 50 mg Given 06/14/2017 50 mg 50 mg, Oral, TWICE DAILY, First dose on 22:28 CDT Mon06/14/17 at 1900, Until Discontinued HYDROcodone/acetaminophen (NORCO) 5/325 Given 06/15/2017 1 tablet mg tablet 1 tablet 00:56 CDT 1 tablet, Oral, EVERY 4 HOURS PRN, Starting Mon06/14/17 at 1922, Until Mon06/15/17 at 1230, Pain PO, TOTAL ACETAMINOPHEN DOSE NOT TO EXCEED 4GM DAILY NOTE: This is a HIGH ALERT Medication. Given 06/15/2017 1 tablet 06:29 CDT morphine injection syringe 2 mg Given 06/14/2017 2 mg 2 mg, Intravenous, ONCE PRN, 1 dose, 21:02 CDT Starting Mon06/14/17 at 1922, Until Mon06/14/17 at 2102, Other..., Pain for Sheath Removal sodium chloride 0.9 % infusion Given - New 06/14/2017 75 mL/hr 1,000 mL, Intravenous, at 75 mL/hr, Bag 09:44 CDT CONTINUOUS, Starting Mon06/14/17 at 0930, Until Mon06/15/17 at 1230, -EF >35%: NS @ 75 mL/hr to be started the morning of the procedure (not to exceed 750 mL) -EF <35%: NS @ 20 mL/hr to be started the morning of procedure (not to exceed 500 mL) sodium chloride 0.9 % infusion Given - New 06/14/2017 50 mL/hr 1,000 mL, Intravenous, at 50 mL/hr, Bag 20:40 CDT CONTINUOUS, Starting Mon06/14/17 at 1930, Until Mon06/15/17 at 1230, IV infusion to run at 50 mL/hr, saline lock when patient tolerates PO intake. in this encounter
--- OUTSIDE RECORDS SUMMARY | 2017-06-22 10:42 | XMS REPORT | Encounter Summary ---
Author Author [facility] Organization [facility] Address Unknown Phone Unavailable Care Team Providers Care Hvac Service Tech Name Role Phone PCP Unavailable Reason for Visit * Reason Comments Records Request via [facility]-[phone] Encounter Details Date Type Department Care Team Description 05/23/2017 Documentation [facility] Cardiology Nathaly Corcoran Records Request (via [address] [place] [address] [phone] Social History Tobacco Use Types Packs/Day Years Used Date Current Every Day Smoker Cigarettes 1 Smokeless Tobacco: Never Used Alcohol Use Drinks/Week oz/Week Comments No Sex Assigned at Date Recorded Not on file as of this encounter Progress Notes * Nathaly Corcoran - 05/23/2017 3:49 PM CDT STAT: Request for the following medical records for purpose of continuity of care: Alex Chester 1980 has an appointment with Dr. Hernandez on NOW Please send: All EKGs from 02/2017 Please Fax to: [phone] Attention: Nathaly [facility] - [phone] Thank you, Nathaly Corcoran MTA [phone] in this encounter Plan of Treatment Not on fileas of this encounter Visit Diagnoses Not on filein this encounter
--- OUTSIDE RECORDS SUMMARY | 2017-06-22 10:42 | XMS REPORT | Encounter Summary ---
Author Author [facility] Organization [facility] Address Unknown Phone Unavailable Care Team Providers Care Mixer Pigment Name Role Phone PCP Unavailable Reason for Visit * Reason Comments New Patient WPW Encounter Details Date Type Department Care Team Description 05/03/2017 Patient Profile [facility] Nathaly Corcoran New Patient (WPW) [address] [place] [address] Social History Tobacco Use Types Packs/Day Years Used Date Current Every Day Smoker Cigarettes 1.5 Smokeless Tobacco: Never Used Sex Assigned at Date Recorded Not on file as of this encounter Progress Notes * Nathaly Corcoran - 05/03/2017 2:46 PM CDT Patient was busy and could not go over history. profile done with records in this encounter Plan of Treatment Not on fileas of this encounter Visit Diagnoses Not on filein this encounter
--- OUTSIDE RECORDS SUMMARY | 2017-06-22 10:42 | XMS REPORT | Clinical Summary ---
Author Author [facility] Address Unknown Phone Unavailable Care Team Providers Care Dampproofer Name Role Phone PCP Unavailable Source Comments Some departments are not documenting in the electronic medical record. If you do not see the information that you expected, contact Release of Information in the Health Information Management department at [phone] for further assistance in locating additional records.[facility] Allergies No Known Allergies Current Medications Prescription Sig. Disp. Refills Start End Date Status Date acetaminophen (TYLENOL) Take 1-2 tablets by mouth 0 06/15/20 Active 325 mg tablet every 4 hours as needed. 17 aspirin EC 81 mg tablet Take 1 tablet by mouth 90 tablet 3 06/15/20 07/15/20 Active daily for 30 days. Take 17 17 with food 1 month post procedure flecainide (TAMBOCOR) 50 Take 1 tablet by mouth 60 tablet 11 05/23/20 06/15/20 Discontin mg tablet twice daily. 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 Continue to have daily episodes of palpitations and tachycardia lasting several minutes each. Encounters Date Type Specialty Care Team Description 06/21/2017 Telephone Cardiology Susana Lancaster RN Incisional Pain ( post SVT ablation) 06/14/2017 Hospital Cardiology Prakash Hernandez MD WPW - Encounter (Wqvwn-Mbzzsukru-Grxrc 06/15/2017 syndrome) 06/14/2017 Anesthesia Cardiology Shreya Armstrong MAKE UP MAN Event 06/14/2017 Procedure Pass Cardiology 06/14/2017 Surgery Cardiology Prakash Hernandez MD Supraventricular Tachycardia Radiofrequency Ablation 06/13/2017 Pre-Admit Cardiology Chantal Hand, [facility] Orders Only 06/02/2017 Orders Only Cardiology Gretchen Maloney RN WPW (Pqbmj-Krljaipca-Uhmis syndrome);Pre-procedure lab exam 05/30/2017 Documentation Cardiology Dayday Mendieta RN Precertification (Approval for EPS/RFA through [facility]) 05/23/2017 Office Visit Cardiology Prakash Hernandez MD New Patient ( WPW; Ref by Dr. Fields) 05/23/2017 Documentation Cardiology Nathaly Corcoran Records Request ( via [facility]-[phone]) 05/23/2017 Orders Only Cardiology Gretchen Maloney RN WPRylan (Lzvlu-Mholkfmkn-Lftwd syndrome) (Primary Dx);Pre-procedure lab exam 05/03/2017 Patient Profile Cardiology Nathaly Corcoran New Patient (WPW) from Last 3 Months Family History Medical History Relation Name Comments Other Father Myocardio bridge Relation Name Status Comments Father Social History Tobacco Use Types Packs/Day Years Used Date Current Every Day Smoker Cigarettes 1 Smokeless Tobacco: Never Used Alcohol Use Drinks/Week oz/Week Comments No Sex Assigned at Date Recorded Not on file Last Filed Vital Signs Vital Sign Reading [...] Mass Index 26.42 06/14/2017 9:16 AM CDT Plan of Treatment Health Maintenance Due Date Last Done Comments PHYSICAL (COMPREHENSIVE) 1989 EXAM PERTUSSIS VACCINE 1993 TETANUS VACCINE 1999 INFLUENZA VACCINE 04/04/2017 Procedures Procedure Name Priority Date/Time Associated Diagnosis Comments ECG-SCAN 06/18/2017 Results for this 7:00 PM CDT procedure are in the results section. ECG-SCAN 06/18/2017 Results for this 7:00 PM CDT procedure are in the results section. from Last 3 Months Results * ECG-SCAN (06/18/2017 7:00 PM) Narrative Ordered by an unspecified provider. * ECG-SCAN (06/18/2017 7:00 PM) Narrative Ordered by an unspecified provider. * CBC (06/15/2017 3:30 AM) Only the most recent of 2 results within the time period is included. Component Value Ref Range White Blood Cells [...] Specimen Performing Laboratory Blood MAIN LAB [address] [place] [address] * BASIC METABOLIC PANEL (06/15/2017 3:30 AM) Only the most recent of 2 results within the time period is included. Component Value Ref Range Sodium 136 (L) [...] Specimen Performing Laboratory Blood MAIN LAB [address] [place] [address] * POC ACTIVATED CLOTTING TIME (06/14/2017 7:22 PM) Component Value Ref Range Activated Clotting Time 154 s Specimen Performing Laboratory MAIN LAB [address] [place] [address] * EP STUDY (06/14/2017 6:57 PM) Specimen [...] in the RA atapproximately 5:00 in an ARM[place]. At the successful site there was fusion of the A and V and during ORT that site was 20 secs earlier than ealiest CS and was 30 seconds pre-systolic/before onset of QRS. Loss of preexcitation occurred within 13 seconds of RF application Successful site was at 0500 on the TA in the [place]EN[place] view in the right atrium Post ablation [...] the modified Seldinger technique. Sheaths: A 7 Bahamian and 6 Fr sheath were placed in the right femoral vein, 3 x6 Bahamian sheaths were placed in the left femoral vein. CATHETERS USED: 1.EP Lori-curve hexapolar catheter placed via access with a 6 Bahamian sheath in the left femoral vein and advanced to the right ventricular apex. 2.EP His-curve quadrapolar catheter placed via access with a 6 Bahamian sheath in the left femoral vein and advanced to the His position. 3.EP Lori-curve quadrapolar catheter placed via access with a 6 Bahamian sheath in the left femoral vein and advanced to the high right atrium. 4.EP decapolar deflectable catheter placed via access with a 6 Bahamian sheath in the right femoral vein and advanced to the coronary sinus. 5.4.0 mm 5031 THK2 EPT mapping/ablation catheter placed via access with a 7 Bahamian sheath in the right femoral vein and [...] in the RA atapproximately 5:00 in an ARMENIAN. At the successful site there was fusion of the A and V and during ORT that site was 20 secs earlier than ealiest CS and was 30 seconds pre-systolic/before onset of QRS. Loss of preexcitation occurred within 13 seconds of RF application Successful site was at 0500 on the TA in the ARMENIAN view in the right atrium Post ablation [...] MAPPING AND ABLATION: Arrhythmias Induced: A.O-AVRT -SVT ID=[id number] -Induction:IAP 280 and IVP at 300 and [...] Baseline: Surface QRS: Sinus CL 810 msec, MI interval 116msec, QRSd 125 msec, QT 438 [...] Intervals Surface QRS: Sinus CL 740 msec, MI interval 162 msec, QRSd 98 msec, QT 431 msec. No bundle branch block and NO preexcitation present. AH interval 109 msec, HV interval 52 msec. AV Wenkebach: 270 msec VA Wenkebach: VA dissociation at all PCLs. AV Node ERP: 600/< 240msec Atrial ERP: 600/< 240 msec * MAGNESIUM (06/01/2017) Component Value Ref Range Magnesium 2.0 Specimen Performing Laboratory Blood VIA [address] [address] Narrative Pre procedure labs- WNL from Last 3 Months
--- OUTSIDE RECORDS SUMMARY | 2017-06-22 10:42 | XMS REPORT | Encounter Summary ---
Author Author [facility] Organization [facility] Address Unknown Phone Unavailable Care Team Providers Care Plant Technician Name Role Phone PCP Unavailable Reason for Visit * Reason Comments Precertification Approval for EPS/RFA through [facility] Encounter Details Date Type Department Care Team Description 05/30/2017 Documentation [facility] Dayday Mendieta, RN Precertification [address] (Approval for EPS/RFA Pravin G600 through [facility]) [place] [address] Social History Tobacco Use Types Packs/Day Years Used Date Current Every Day Smoker Cigarettes 1 Smokeless Tobacco: Never Used Alcohol Use Drinks/Week oz/Week Comments No Sex Assigned at Date Recorded Not on file as of this encounter Progress Notes * Dayday Mendieta, RN - 05/30/2017 10:34 AM CDT Felisa with [facility], , confirmed benefits and eligibility: Current and active since 01/02/2017, $600 deductible with required co-insurance of 20% to max OOP $2000, then plan will pay 100% of allowable charges. Reference #[id number]. No pre-certification is required for EPS/RFA for WPW [address], per Chapo in medical prior authorization group. Reference Chapo Bah 05/30/2017 in this encounter Plan of Treatment Not on fileas of this encounter Visit Diagnoses Not on filein this encounter
--- OUTSIDE RECORDS SUMMARY | 2017-06-22 10:42 | XMS REPORT | Encounter Summary ---
Author Author [facility] Organization [facility] Address Unknown Phone Unavailable Care Team Providers Care Animal Care Specialist Name Role Phone PCP Unavailable Encounter Details Date Type Department Care Team Description 06/14/2017 Anesthesia [facility] EP LAB Patti, Shreya, DENTOFACIAL ORTHOPEDICS DENTIST [address] [place] [address] [address] [place] [place], [place] [id number] Social History Tobacco Use Types Packs/Day Years Used Date Current Every Day Smoker Cigarettes 1 Smokeless Tobacco: Never Used Alcohol Use Drinks/Week oz/Week Comments No Sex Assigned at Date Recorded Not on file as of this encounter Plan of Treatment Not on fileas of this encounter Visit Diagnoses Not on filein this encounter
--- OUTSIDE RECORDS SUMMARY | 2017-06-22 10:42 | XMS REPORT | Encounter Summary ---
Author Author [facility] Organization [facility] Address Unknown Phone Unavailable Care Team Providers Care Nutrient Management Specialist Name Role Phone PCP Unavailable Reason for Visit * Auth/Cert (Routine) Status Reason Specialty Diagnoses / Referred By Referred To Procedures Contact Contact Encounter Details Date Type Department Care Team Description 06/14/2017 Surgery [facility] EP LAB Prakash Hernandez MD Supraventricular [address] [place] [address] [address] Radiofrequency Ablation [phone] [place] [address] Social History Tobacco Use Types Packs/Day Years [...] a hematoma after ambulation. Patient escorted to lobby via Transport. Patient to follow up with [facility] Cardiology ([facility]) or on-call physician with any additional questions or concerns. All contact numbers provided. Patient and family acceptant of DC instuctions and report understanding to all information. * Prakash Hernanedz MD - 06/14/2017 7:05 PM CDT Cardiac [...] the RA at approximately 5:00 in an [place]. At the successful site there was fusion of the A and V and during ORT that site was 20 secs earlier than ealiest CS and was 30 seconds pre-systolic/before onset of QRS. Loss of preexcitation occurred within 13 seconds of RF application Successful site was at 0500 in the [place] view in the right atrium Post ablation [...] None Specimens removed: None Sheaths: A 7 Angolan and 6 Fr sheath were placed in the right femoral vein, 3 x 6 Angolan sheaths were placed in the left femoral vein. Catheters: 7 Angolan sheath in the right femoral vein through which the mapping catheter was placed; 6 Angolan sheath in the right femoral vein through which the CS catheter was placed; 6 Angolan sheath in the left femoral vein. The RV apex catheter was placed; 6 Angolan sheath in the left femoral vein through which the his catheter was placed; 6 Angolan Sheath in the left femoral vein through [...] Specimen Performing Laboratory Blood MAIN LAB [address] [place] [address] * CBC (06/15/2017 3:30 AM) Component Value [...] [place] Specimen Performing Laboratory Blood MAIN LAB [address] [place] [id number] * POC ACTIVATED CLOTTING TIME (06/14/2017 7:22 PM) Component Value Ref Range Activated Clotting Time 154 s Specimen Performing Laboratory MAIN LAB [address] [place] [address] * EP STUDY (06/14/2017 6:57 PM) Specimen [...] in 3 months - No need for beta-dentno or antiarrhythmic drug therapy at this point. [...] in the RA atapproximately 5:00 in an [place]. At the successful site there was fusion of the A and V and during ORT that site was 20 secs earlier than ealiest CS and was 30 seconds pre-systolic/before onset of QRS. Loss of preexcitation occurred within 13 seconds of RF application Successful site was at 0500 on the TA in the [place] view in the right atrium Post ablation [...] the modified Seldinger technique. Sheaths: A 7 Angolan and 6 Fr sheath were placed in the right femoral vein, 3 x6 Angolan sheaths were placed in the left femoral vein. CATHETERS USED: 1.EP Lori-curve hexapolar catheter placed via access with a 6 Angolan sheath in the left femoral vein and advanced to the right ventricular apex. 2.EP His-curve quadrapolar catheter placed via access with a 6 Angolan sheath in the left femoral vein and advanced to the His position. 3.EP Lori-curve quadrapolar catheter placed via access with a 6 Angolan sheath in the left femoral vein and advanced to the high right atrium. 4.EP decapolar deflectable catheter placed via access with a 6 Angolan sheath in the right femoral vein and advanced to the coronary sinus. 5.4.0 mm 5031 THK2 EPT mapping/ablation catheter placed via access with a 7 Angolan sheath in the right femoral vein and [...] in the RA atapproximately 5:00 in an [place]. At the successful site there was fusion of the A and V and during ORT that site was 20 secs earlier than ealiest CS and was 30 seconds pre-systolic/before onset of QRS. Loss of preexcitation occurred within 13 seconds of RF application Successful site was at 0500 on the TA in the [place] view in the right atrium Post ablation [...] MAPPING AND ABLATION: Arrhythmias Induced: A.O-AVRT -SVT PR=[id number] -Induction:IAP 280 and IVP at 300 and [...] Baseline: Surface QRS: Sinus CL 810 msec, DC interval 116msec, QRSd 125 msec, QT 438 [...] Intervals Surface QRS: Sinus CL 740 msec, DC interval 162 msec, QRSd 98 msec, QT 431 msec. No bundle branch block and NO preexcitation present. AH interval 109 msec, HV interval 52 msec. AV Wenkebach: 270 msec VA Wenkebach: VA dissociation at all PCLs. AV Node ERP: 600/< 240msec Atrial ERP: 600/< 240 msec in this encounter Visit Diagnoses Not on filein this encounter Admitting Diagnoses Diagnosis Patricia Parkinson White, Supraventricular Tachycardia WPW (Uyovr-Qrenchunm-Nyiwv syndrome) in this encounter Administered Medications Medication [...] 1922, Until Lara 06/15/17 at 1230, Pain PO, TOTAL ACETAMINOPHEN DOSE [...]
--- OUTSIDE RECORDS SUMMARY | 2017-06-22 10:42 | XMS REPORT | Encounter Summary ---
Author Author [facility] Organization [facility] Address Unknown Phone Unavailable Care Team Providers Care On Car Supervisor Name Role Phone PCP Unavailable Reason for Visit * Reason Comments New Patient WPW; Ref by Dr. Fields Encounter Details Date Type Department Care Team Description 05/23/2017 Office Visit [facility] Cardiology Prakash Hernandez MD New Patient (WPW; Ref by [id number] [facility] [address] [place] [address] [place] [address] [phone] Social History Tobacco Use Types Packs/Day Years Used Date Current Every Day Smoker Cigarettes 1 Smokeless Tobacco: Never Used Alcohol Use Drinks/Week oz/Week Comments No Sex Assigned at Date Recorded Not on file as of this encounter Last Filed Vital Signs Vital Sign Reading Time Taken Blood Pressure 108/80 05/23/2017 11:48 AM CDT Pulse 66 05/23/2017 11:48 AM CDT Temperature - - Respiratory Rate - - Oxygen Saturation - - Inhaled Oxygen - - Concentration Weight 83.5 kg (184 lb) 05/23/2017 11:48 AM CDT Height 175.3 cm (5' 9") 05/23/2017 11:48 AM CDT Body Mass Index 27.17 05/23/2017 11:48 AM CDT in this encounter Instructions * Patient Instructions - Gretchen Maloney RN - 05/23/2017 10:45 AM CDT We will call [facility] and ask for the EKGs from [facility]- Flecainide Acetate Oral tablet What is this medicine? FLECAINIDE (FLEK a nide) is an antiarrhythmic drug. This medicine is used to prevent irregular heart rhythm. It can also slow down fast heartbeats called tachycardia. This medicine may be used for other purposes; ask your health care provider or pharmacist if you have questions. What should I tell my health care provider before I take this medicine? They need to know if you have any of these conditions: abnormal levels of potassium in the blood heart disease including heart rhythm and heart rate problems kidney or liver disease recent heart attack an unusual or allergic reaction to flecainide, local anesthetics, other medicines, foods, dyes, or preservatives or trying to get breast-feeding How should I use this medicine? Take this medicine by mouth with a glass of water. Follow the directions on the prescription label. You can take this medicine with or without food. Take your doses at regular intervals. Do not take your medicine more often than directed. Do not stop taking this medicine suddenly. This may cause serious, heart- related side effects. If your doctor wants you to stop the medicine, the dose may be slowly lowered over time to avoid any side effects. Talk to your machine tool designer regarding the use of this medicine in children. While this drug may be prescribed for children as young as 1 year of age for selected conditions, precautions do apply. Overdosage: If you think you have taken too much of this medicine contact a poison control center or emergency room at once. NOTE: This medicine is only for you. Do not share this medicine with others. What if I miss a dose? If you miss a dose, take it as soon as you can. If it is almost time for your next dose, take only that dose. Do not take double or extra doses. What may interact with this medicine? Do not take this medicine with any of the following medications: amoxapine arsenic trioxide certain antibiotics like clarithromycin, erythromycin, gatifloxacin, gemifloxacin, levofloxacin, moxifloxacin, sparfloxacin, or troleandomycin certain antidepressants called tricyclic antidepressants like amitriptyline, imipramine, or nortriptyline certain medicines to control heart rhythm like disopyramide, dofetilide, encainide, moricizine, procainamide, propafenone, and quinidine cisapride cyclobenzaprine delavirdine droperidol haloperidol hawthorn imatinib levomethadyl maprotiline medicines for malaria like chloroquine and halofantrine pentamidine phenothiazines like chlorpromazine, mesoridazine, prochlorperazine, thioridazine pimozide quinine ranolazine ritonavir sertindole ziprasidone This medicine may also interact with the following medications: cimetidine medicines for angina or high blood pressure medicines to control heart rhythm like amiodarone and digoxin This list may not describe all possible interactions. Give your health care provider a list of all the medicines, herbs, non-prescription drugs, or dietary supplements you use. Also tell them if you smoke, drink alcohol, or use illegal drugs. Some items may interact with your medicine. What should I watch for while using this medicine? Visit your doctor or health hiv/aids care nurse for regular checks on your progress. Because your condition and the use of this medicine carries some risk , it is a good idea to carry an identification card, necklace or bracelet with details of your condition, medications and doctor or health hiv/aids care nurse. Check your blood pressure and pulse rate regularly. Ask your health hiv/aids care nurse what your blood pressure and pulse rate should be, and when you should contact him or her. Your doctor or health hiv/aids care nurse also may schedule regular blood tests and electrocardiograms to check your progress. You may get drowsy or dizzy. Do not drive, use machinery, or do anything that needs mental alertness until you know how this medicine affects you. Do not stand or sit up quickly, especially if you are an older patient. This reduces the risk of dizzy or fainting spells. Alcohol can make you more dizzy, increase flushing and rapid heartbeats. Avoid alcoholic drinks. What side effects may I notice from receiving this medicine? Side effects that you should report to your doctor or health hiv/aids care nurse as soon as possible: chest pain, continued irregular heartbeats difficulty breathing swelling of the legs or feet trembling, shaking unusually weak or tired Side effects that usually do not require medical attention (report to your doctor or health hiv/aids care nurse if they continue or are bothersome): blurred vision constipation headache nausea, vomiting stomach pain This list may not describe all possible side effects. Call your doctor for medical advice about side effects. You may report side effects to FDA at 1-383- FDA-4201. Where should I keep my medicine? Keep out of the reach of children. Store at room temperature between 15 and 30 degrees C (59 and 86 degrees F). Protect from light. Keep container tightly closed. Throw away any unused medicine after the expiration date. NOTE:This sheet is a summary. It may not cover all possible information. If you have questions about this medicine, talk to your doctor, pharmacist, or health care provider. Copyright 2017 [employer] in this encounter Progress Notes * Prakash Hernandez MD - 05/23/2017 10:45 AM CDT Formatting of this note may be different from the original. Date of Service: 05/23/2017 Alex Briggs is a 37 y.o. male. 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 He is typically followed and was referred by my friend and colleague Dr. Fields, his primary ring striker, in [place], [place]. Mr. Briggs is an exceptionally pleasant 37 y.o. male, who is accompanied by his equally pleasant fianceeNorman, who is 25 weeks . This will be their fifth shared child. 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 All data in this note, including the past medical history, was newly collected today. His PMHx briefly includes: WPW, SVT--Wide Complex Tachycardia noted on her resolved willingness to get a better EKG, chest pain, Normal LV Function by Echocardiogram at Dr. Salcedo's office; LBBB; Palpitations; Chest Pain syndrome; Abnormal EKG; Tobacco Abuse -- Early : He presented to ED but SVT had already resolved, he later saw a Olive Picker who diagnosed him with WPW -- 04/15/17: ED: Pt presented with complex tachycardia requiring successful CVRT --> NSR. Pt complained of daily episodes of palpitations and tachycardia, lasting several minutes at a time. -- 04/28/17: PA OV at [facility]): Hospital f/u for recent chest tightness, wide-complex tachycardia, WPW, probable AF with aberrant conductions. Pt in NSR s/p CVRT. Continued to monitor --> referred for EP Consultation -- 05/2017: Pt has had at least 2 recurrent events since his ED presentation, which were terminated with Valsalva -- 05/23/17: Initial EP Consultation He STATES he has been experiencing episodes of being "hot and dizzy" while his heart is racing. He states he recently presented to the ED with tachypalpitations and near syncope, where he recieved 12 mg Adenosine without change and ultimately underwent CVRT to NSR. He states he has had at least 2 recurrent WPW events since his ED presentation, which were terminated with Valsalva. He states he has also stopped consuming energy drinks and is working toward smoking cessation. He denies any chest discomfort, shortness of breath, lightheadedness, dizziness , or syncope, PND or orthopnea. FHx, SHx and ROS documented and I have reviewed, with some pertinent features to include: No FHx of premature CAD. He is a Current everyday Smoker (17 year pack history, 1 ppd) with chewing tobacco. Most pertinent ROS is included/ discussed throughout the note, e.g. HPI and A/P. ASSESSMENT AND PLAN: -- WPW -- Wide-complex tachycardia -- SVT -- Paroxysmal AFIB with WPW -- Palpitations -- Chest Pain Syndrome -- LBBB -- Abnormal EKG -- Tobacco Abuse He clearly has evidence of WPW likely has right posterior septal, or mid-septal pathway. In the interim priority of pursuing SVT RFA, we will initiate Flecainide 50 mg BID. 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 We had a lengthy discussion regarding SVT, the pathophysiology of SVT, the different types of SVT, the mechanisms, and therapeutic options. We also discussed the therapeutic options for SVT to include: AV marcelino suppressing agents, membrane stabilizing antiarrhythmic drug therapy,or pursuing EPS RFA. Re: RFA, We discussed if this is a right posterior septal, or mid-septal pathway that a Transeptal Puncture may be required. We discussed the procedure itself along with its associated risks, rationale, options, and benefits in detail with Alex Briggs and his fianceeNorman. We discussed the risks to include, but not be limited to: , FL, stroke, cardiac perforation, complete heart block which could result in the need for a permanent pacemaker, bleeding, swelling, hematoma, infection, DVT, or vascular injury. He, the patient expressed an understanding of the procedure and risks, and wishes to proceed. He was instructed to hold any AVN suppressing or Antiarrhythmic drug Tx for 72 hours prior to the procedure. ADDENDUM: We finally received ECGs from his initial ED presentation where he was cardioverted back to sinus rhythm 1 adenosine did not help terminate his arrhythmia. The ECG clearly shows atrial fibrillation with WPW with variable preexcitation. The shortest RR interval is approximately 699504 ms. NOTEPatients with atrial fibrillation and WPW often will no longer have atrial fibrillation once the WPW is eliminated by RF ablation. Unfortunately we did not obtain an ECG from his ER presentation until he had left the office. We will discuss WPW and atrial fibrillation at the time of his procedure. PLAN: -- After lengthy discussion, he wishes to proceed with an SVT RFA Ablation procedure for his WPW -- In the interim priority of pursuing SVT RFA for his WPW, we will initiate Flecainide 50 mg BID -- He will need to stop his flecainide 72 hours prior to the procedure Mr. Briggs was educated regarding plan of care. He was instructed to call our office with any questions or concerns, as well as to notify us of any new or worsening symptoms. He verbalized understanding. I appreciate the opportunity to participate in the care of your patient. Please do not hesitate to contact me directly if you have any questions or further insights into his care. I have scheduled his follow-up with me in 3 month(s). Vitals: 05/23/17 1148 BP: 108/80 Pulse: 66 Weight: 83.5 kg (184 lb) Height: 1.753 m (5' 9") Body mass index is 27.17 kg/(m^2). Past Medical History Patient Active Problem List Diagnosis Date Noted SVT (supraventricular tachycardia) ([facility]) 05/31/2017 A-fib ([facility]) 05/31/2017 WPW (Ysyvq-Vbnphnovu-Wosxh syndrome) 05/23/2017 - Hospitalized for wide complex tachycardia, cardioversion. Continue to have daily episodes of palpitations and tachycardia lasting several minutes each. Review of Systems Constitution: Negative. HENT: Negative. Eyes: Negative. Cardiovascular: Negative. Respiratory: Negative. Endocrine: Negative. Hematologic/Lymphatic: Negative. Skin: Negative. Musculoskeletal: Negative. Gastrointestinal: Negative. Genitourinary: Negative. Neurological: Negative. Psychiatric/Behavioral: Negative. Allergic/Immunologic: Negative. Physical Exam Constitutional: He is in no acute distress, resting comfortably. Skin/Integument: Warm and dry Eyes: PERRL, sclera are non-icteric and no xanthelasmas noted ENT : Hearing is intact, Oropharynx is clear and moist. Heme/Lym/Immun: Supple neck, without thyromegaly Respiratory-Pulmonary/Chest: Effort normal and breath sounds normal. No respiratory distress or accessory muscle use. No obvious tracheal deviation. Clear to auscultation bilaterally. Cardiovascular: No evidence of increased jugular venous pressure, carotids are 2+/4+ equal bilaterally, without obvious bruit. Regular rhythm, with intermittent premature beats, S1, S2. I do not appreciate any significant murmur today. No heaves, thrills or rubs. GI: + Bowel sounds, soft and non-tender Musc/Skeletal-Extremities: without significant peripheral edema and with what appears to be full ROM Neuro: Patient is alert and oriented to person, place, and time. Psych: Patient does not appear anxious, he appears appropriate, with normal non -pressured speech and what appears to be appropriate judgement Cardiovascular Studies ECG today demonstrates sinus rhythm at 66 bpm with ventricular premature complex and vent pre-excitation. Problems Addressed Today Encounter Diagnoses Name Primary? WPW (Aifej-Fmmftbnbg-Qjhxd syndrome) Yes SVT (supraventricular tachycardia) (HCC) Paroxysmal atrial fibrillation (HCC) Current Medications (including today's revisions) flecainide (TAMBOCOR) 50 mg tablet Take 1 tablet by mouth twice daily. Documentation recorded by Abhinav Cline, acting as scribe for Prakash Hernandez M.D. in this encounter Plan of Treatment Not on fileas of this encounter Visit Diagnoses Diagnosis WPW (Wrcpb-Vromjyneg-Vlsxd syndrome) - Primary Anomalous atrioventricular excitation SVT (supraventricular tachycardia) (HCC) Other specified cardiac dysrhythmias Paroxysmal atrial fibrillation (HCC) Atrial fibrillation in this encounter
--- OUTSIDE RECORDS SUMMARY | 2017-06-22 10:42 | XMS REPORT | Encounter Summary ---
Author Author [facility] Organization [facility] Address Unknown Phone Unavailable Care Team Providers Care Banking Center Manager Name Role Phone PCP Unavailable Encounter Details Date Type Department Care Team Description 06/02/2017 Orders Only [facility] Gretchen Maloney RN WPW [address] [phone] ([facility] [address] syndrome);[place] [address] lab exam [phone] Social History Tobacco Use Types Packs/Day Years Used Date Current Every Day Smoker Cigarettes 1 Smokeless Tobacco: Never Used Alcohol Use Drinks/Week oz/Week Comments No Sex Assigned at Date Recorded Not on file as of this encounter Plan of Treatment Not on fileas of this encounter Results * MAGNESIUM (06/01/2017) Component Value Ref Range Magnesium 2.0 Specimen Performing Laboratory Blood [facility] [address] [place] [address] Narrative Pre procedure labs- WNL * BASIC METABOLIC PANEL (06/01/2017) Component Value Ref Range Sodium 142 Potassium 4.0 Chloride 106 CO2 27 Blood Urea Nitrogen 13 Creatinine 1.11 Glucose 69 Calcium 9.4 eGFR Non >60 eGFR Anion Gap Specimen Performing Laboratory Blood [facility] [address] [place] [address] Narrative Pre proc labs WNL * CBC (06/01/2017) Component Value Ref Range White Blood Cells 10.1 RBC 4.72 Hemoglobin 14.9 Hematocrit 44 MCV 93 MCH 32 MCHC 34 Platelet Count 272 MPV 10 RDW 12.5 Specimen Performing Laboratory Blood [facility] [address] [address] Narrative Pre proc lab WNL in this encounter Visit Diagnoses Diagnosis WPW (Zqegl-Eczoefupj-Yrclp syndrome) Anomalous atrioventricular excitation Pre-procedure lab exam Pre-procedural laboratory examination in this encounter
--- OUTSIDE RECORDS SUMMARY | 2017-06-22 10:42 | XMS REPORT | Encounter Summary ---
Author Author [facility] Address Unknown Phone Unavailable Care Team Providers Care Electronic Assembler Group Leader Name Role Phone PCP Unavailable Encounter Details Date Type Department Care Team Description 06/13/2017 Pre-Admit XDD CARDIOLOGY Chantal Hand, FOOD PORTER-C Orders Only [address] [place] [address] Social History Tobacco Use Types Packs/Day Years Used Date Current Every Day Smoker Cigarettes 1 Smokeless Tobacco: Never Used Alcohol Use Drinks/Week oz/Week Comments No Sex Assigned at Date Recorded Not on file as of this encounter Plan of Treatment Not on fileas of this encounter Visit Diagnoses Not on filein this encounter
--- OUTSIDE RECORDS SUMMARY | 2017-06-22 10:42 | XMS REPORT | Encounter Summary ---
Author Author [facility] Organization [facility] Address Unknown Phone Unavailable Care Team Providers Care Advanced Manufacturing Engineer Name Role Phone PCP Unavailable Encounter Details Date Type Department Care Team Description 06/14/2017 Procedure Pass [facility] [address] [place], [place] [id number] Social History Tobacco Use Types Packs/Day Years Used Date Current Every Day Smoker Cigarettes 1 Smokeless Tobacco: Never Used Alcohol Use Drinks/Week oz/Week Comments No Sex Assigned at Date Recorded Not on file as of this encounter Plan of Treatment Not on fileas of this encounter Visit Diagnoses Not on filein this encounter
[2017-06-22] MEDS ORDERED: ASPI-586 PO (10:50)
--- NOTE | 2017-06-22 11:33 | ED Lower Extremity ---
General Chief Complaint: Lower Extremity Stated Complaint: GROIN PAIN Nursing Triage Note: AMB TO ROOM REPORTS PMH OF WPW HAD PROCEDURE AT [facility] ON JUN 14 THEY USED HIS L GROIN. YESTERDAY STARTED HAVING PAIN,WITH BRUSING ON LEGS. Nursing Sepsis Screen: No Definite Risk History of Present Illness Time seen by provider: 11:15 Initial Comments Patient had radiofrequency ablation by Dr. Hernandez at [facility] 06/14/17, for SVT and WPW. He has bilateral groin incisions. Yesterday he began to notice bruising on his upper legs. He is on aspirin 81 milligrams 1 by mouth daily. He is also taking ibuprofen and Tylenol on occasion. He denies any injuries falls or other causes for the bruising. He was in contact with Dr. Hernandez's office today, they recommended evaluation in the emergency department and ultrasounds. He denies any fevers, headaches, shortness of breath, chest pain, palpitations or other concerns. Onset: yesterday Pain/Injury Location: bilateral thigh Method of Injury: unknown Modifying Factors: Improves With Rest Allergies and Home Medications Allergies Coded Allergies: No Known Drug Allergies (Unverified , 04/15/17) Home Medications Aspirin 81 Mg Tablet., 81 MG PO, (Reported) Constitutional: no symptoms reported, see HPI Skin: see HPI, other (bruising bilateral lower extremities per patient) All Other Systems Reviewed Negative Unless Noted: Yes Past Lchqgsm-Wursed-Uphayo Hx Patient Social History Alcohol Use: Denies Use Recreational Drug Use: No Smoking Status: Current Everyday Smoker Type Used: Cigarettes Recent Foreign Travel: No Contact w/Someone Who Travel: No Recent Infectious Disease Expo: No Recent Hopitalizations: No Seasonal Allergies Seasonal Allergies: No Surgeries History of Surgeries: Yes (GANGLION CYST) Surgeries: Cardiac (radiofrequency ablation, June 14, 2017 [facility]) Respiratory History of Respiratory Disorde: No Currently Using CPAP: No Currently Using BIPAP: No Cardiovascular History of Cardiac Disorders: Yes (WPW) Neurological History of Neurological Disord: No Genitourinary History of Genitourinary Disor: No Gastrointestinal History of Gastrointestinal Di: No Musculoskeletal History of Musculoskeletal Dis: No Endocrine History of Endocrine Disorders: No HEENT History of HEENT Disorders: No Cancer History of Cancer: No Psychosocial History of Psychiatric Problem: No Integumentary History of Skin or Integumenta: No Blood Transfusions History of Blood Disorders: No Reviewed Nursing Assessment Reviewed/Agree w Nursing PMH: Yes Physical Exam Vital Signs Vital Sign - Last 12Hours 06/22/17 10:40 Temp 98.2 Pulse 71 Resp 18 B/P (MAP) 133/84 Pulse Ox 99 O2 Delivery Room Air Capillary Refill : Less Than 3 Seconds General Appearance: WD/WN, no apparent distress HEENT: normal ENT inspection, TMs normal, pharynx normal Neck: non-tender, full range of motion, supple, normal inspection Cardiovascular: normal peripheral pulses (2+ bilateral upper and lower extremities.), regular rate, rhythm, no edema, other (negative Homans sign bilaterally) Respiratory: chest non-tender, lungs clear, normal breath sounds, no respiratory distress Gastrointestinal: normal bowel sounds, non tender, soft Hips: bilateral hip normal inspection, bilateral hip normal range of motion, bilateral hip bone tenderness (bilateral iliac crest) Legs: bilateral leg non-tender, bilateral leg normal inspection, bilateral leg normal range of motion, bilateral leg no evidence of injury Feet: bilateral foot non-tender, bilateral foot normal inspection, bilateral foot other (toes are cool to touch, cap Refill less than 2 seconds.) Neurologic/Tendon: normal sensation, normal motor functions, normal tendon functions Neurologic/Psychiatric: no motor/sensory deficits, alert, normal mood/affect, oriented x 3 Skin: normal color, warm/dry, No cyanosis, No cool, No diaphoresis, No ecchymosis, other (there is no evidence of hematomas or ecchymosis bilateral thighs. There is faint vascularity physical, no varicosities. Wounds to bilateral groins are healing with no redness, swelling, drainage, or erythema.) Lymphatic: no adenopathy Patient Education: Explained Benefits, Explained Risks, Pt. Ack. Understanding Breath Sounds per Auscultation: Clear Heart Sounds per Auscultation: Irregular Airway Exam: Mouth opens >2 fingers, Neck Full Range of Motion, Visulation of Uvula Sedation Adminstration Time: 2024 Re-examination Time: 2039 Progress/Results/Core Measures Results/Orders Lab Results Laboratory Tests Test 06/22/17 11:48 Range/Units White Blood Count 7.5 4.3-11.0 10^3/uL Red Blood Count 4.86 4.35-5.85 10^6/uL Hemoglobin 15.2 13.3-17.7 G/DL Hematocrit 44 40-54 % Mean Corpuscular Volume 91 80-99 FL Mean Corpuscular Hemoglobin 31 25-34 PG Mean Corpuscular Hemoglobin Concent 34 32-36 G/DL Red Cell Distribution Width 12.2 10.0-14.5 % Platelet Count 273 130-400 10^3/uL Mean Platelet Volume 10.2 7.4-10.4 FL Neutrophils (%) (Auto) 59 42-75 % Lymphocytes (%) (Auto) 29 12-44 % Monocytes (%) (Auto) 9 0-12 % Eosinophils (%) (Auto) 3 0-10 % Basophils (%) (Auto) 1 0-10 % Neutrophils # (Auto) 4.4 1.8-7.8 X 10^3 Lymphocytes # (Auto) 2.1 1.0-4.0 X 10^3 Monocytes # (Auto) 0.6 0.0-1.0 X 10^3 Eosinophils # (Auto) 0.3 0.0-0.3 10^3/uL Basophils # (Auto) 0.1 0.0-0.1 10^3/uL Prothrombin Time 13.1 12.2-14.7 SEC INR Comment 1.0 0.8-1.4 Activated Partial Thromboplast Time 39 H 24-35 SEC Sodium Level 137 135-145 MMOL/L Potassium Level 4.4 3.6-5.0 MMOL/L Chloride Level 104 98-107 MMOL/L Carbon Dioxide Level 29 21-32 MMOL/L Anion Gap 4 L 5-14 MMOL/L Blood Urea Nitrogen 9 7-18 MG/DL Creatinine 1.11 0.60-1.30 MG/DL Estimat Glomerular Filtration Rate > 60 BUN/Creatinine Ratio 8 Glucose Level 97 70-105 MG/DL Calcium Level 9.4 8.5-10.1 MG/DL Magnesium Level 2.0 1.8-2.4 MG/DL Total Bilirubin 0.4 0.1-1.0 MG/DL Aspartate Amino Transf (AST/SGOT) 24 5-34 U/L Alanine Aminotransferase (ALT/SGPT) 25 0-55 U/L Alkaline Phosphatase 59 40-136 U/L Total Creatine Kinase 77 30-200 U/L Creatine Kinase MB 0.3 <6.6 NG/ML Troponin I < 0.30 <0.30 NG/ML Total Protein 7.2 6.4-8.2 GM/DL Albumin 4.3 3.2-4.5 GM/DL My Orders Orders - HENRY VIRK Us Venous Lower Ext Juanito (06/22/17 11:24) Cbc With Automated Diff (06/22/17 11:24) Comprehensive Metabolic Panel (06/22/17 11:24) Creatine Kinase (06/22/17 11:24) Creatine Kinase Mb (06/22/17 11:24) Magnesium (06/22/17 11:24) Protime With Inr (06/22/17 11:24) Partial Thromboplastin Time (06/22/17 11:24) Troponin I (06/22/17 11:24) Ekg Tracing (06/22/17 11:24) Vital Signs/I&O Vital Sign - Last 12Hours 06/22/17 06/22/17 10:40 12:37 Temp 98.2 98.2 Pulse 71 71 Resp 18 18 B/P (MAP) 133/84 Pulse Ox 99 99 O2 Delivery Room Air Blood Pressure Mean: 100 Progress Note : Time: 11:15 Progress Note Initial evaluation completed, discussed that these are probably just his venous vascular pattern that he can visualize, however with his recent history and discussion with the computer systems technician at [facility] we will complete and EKG, labs and bilateral venous ultrasounds. 1205 bilateral [place] ultrasound negative for DVT. His oldest discussed with the patient and his . Recommended follow-up with cardiology as needed. Warnings to return to the emergency department discussed with patient, he verbalized understanding. ECG Initial ECG Impression Date: Jun 22, 2017 Initial ECG Impression Time: 11:35 Initial ECG Rate: 60 Initial ECG Rhythm: Normal Sinus Initial ECG Intervals: Normal Initial ECG Intervals NE 152, QRS T 94, QT 448, QTC 448, axis P 51, QRS 69, T 25. Initial ECG Impression: Normal Initial ECG Comparisson: Changed (improved, previous EKG showing WPW and SVT.) Comment Reviewed EKG with Dr. Gunter, concurred with the interpretation. Diagnostic Imaging Diagonstic Imaging: Ultrasound Plain Films/CT/US/NM/MRI: leg (bilateral lower extremities) Comments NAME: BENOIT RICE [facility] REC#: [id number] PT STATUS: REG ER : 1980 PHYSICIAN: HENRY VIRK ADMIT DATE: 06/22/17/ER Signed Date of Exam: 06/22/17 US VENOUS LOWER EXT JUANITO EXAMINATION: Bilateral lower extremity duplex venous ultrasound. TECHNIQUE: DVT protocol. Multiple sonographic images with color Doppler and waveform interrogation were performed of the lower extremity veins, bilaterally, with compression and augmentation maneuvers. INDICATION: Bilateral leg bruising and discoloration. FINDINGS: The lower extremity veins from the common femoral veins to below the knee veins were examined with normal color-flow, compressibility and normal waveform demonstrated. The great saphenous vein bilaterally is patent. IMPRESSION: No evidence of DVT in either lower extremity. Dictated by: Dictated on workstation # [id number] Dict: 06/22/17 1230 Trans: 06/22/17 1232 Interpreted by: TONY URBINA MD Electronically signed by: TONY URBINA MD 06/22/17 1232 Departure Impression Impression: Primary Impression: Bilateral leg pain Disposition: 01 HOME, SELF-CARE Condition: Stable Departure-Patient Inst. Decision time for Depature: 12:15 Referrals: NO,LOCAL PHYSICIAN (PCP/Family) Primary Care Physician Patient Instructions: Active Range of Motion Exercises, Back and Hips, Acute Pain, Adult (DC) Add. Discharge Instructions: Keep follow-up appointment with Dr. Hernandez and Dr. Fields for cardiology. Call for earlier appointment if continued symptoms. Activity as tolerated, no restrictions. Alternate between Tylenol 650 mg and ibuprofen 600 mg every 6-8 hours for pain or discomfort Return to emergency department for chest pain, shortness of breath, fever greater than 101, new problems or concerns. All discharge instructions reviewed with patient and/or family. Voiced understanding. Work/School Note: Local Medical Staff Listing Copy Copies To 1: JESSICA FIELDS MD, AMY ARNP Jun 22, 2017 11:33
[2017-06-22 11:57] LABS: BASOPHILS # (AUTO) 0.1 10^3/uL (0.0-0.1); BASOPHILS % (AUTO) 1 % (0-10); EOSINOPHILS # (AUTO) 0.3 10^3/uL (0.0-0.3); EOSINOPHILS % (AUTO) 3 % (0-10); LYMPHOCYTES # (AUTO) 2.1 X 10^3 (1.0-4.0); LYMPHOCYTES % (AUTO) 29 % (12-44); MEAN CORPUSCULAR HEMOGLOBIN 31 PG (25-34); MEAN CORPUSCULAR HGB CONC 34 G/DL (32-36); MEAN CORPUSCULAR VOLUME 91 FL (80-99); MEAN PLATELET VOLUME 10.2 FL (7.4-10.4); MONOCYTES # (AUTO) 0.6 X 10^3 (0.0-1.0); MONOCYTES % (AUTO) 9 % (0-12); NEUTROPHILS # (AUTO) 4.4 X 10^3 (1.8-7.8); NEUTROPHILS % (AUTO) 59 % (42-75); PLATELET COUNT 273 10^3/uL (130-400); RED BLOOD COUNT 4.86 10^6/uL (4.35-5.85); RED CELL DISTRIBUTION WIDTH 12.2 % (10.0-14.5); WHITE BLOOD COUNT 7.5 10^3/uL (4.3-11.0)
[2017-06-22 12:06] LABS: PROTHROMBIN TIME PATIENT 13.1 SEC (12.2-14.7)
[2017-06-22 12:15] LABS: ALANINE AMINOTRANSFERASE 25 U/L (0-55); ALBUMIN 4.3 GM/DL (3.2-4.5); ANION GAP 4 MMOL/L (5-14); ASPARTATE AMINO TRANSFERASE 24 U/L (5-34); BILIRUBIN,TOTAL 0.4 MG/DL (0.1-1.0); BLOOD UREA NITROGEN 9 MG/DL (7-18); BUN/CREATININE RATIO 8; CALCIUM 9.4 MG/DL (8.5-10.1); CARBON DIOXIDE 29 MMOL/L (21-32); CHLORIDE 104 MMOL/L (98-107); CREATINE KINASE 77 U/L (30-200); CREATININE SERUM 1.11 MG/DL (0.60-1.30); GFR ESTIMATED > 60; GLUCOSE 97 MG/DL (70-105); POTASSIUM 4.4 MMOL/L (3.6-5.0); SODIUM 137 MMOL/L (135-145); TOTAL PROTEIN 7.2 GM/DL (6.4-8.2)
[2017-06-22 12:21] LABS: TROPONIN I < 0.30 NG/ML (<0.30)
--- NOTE | 2017-06-22 12:34 | Diagnostic Imaging Report ---
EXAMINATION: Bilateral lower extremity duplex venous ultrasound. TECHNIQUE: DVT protocol. Multiple sonographic images with color Doppler and waveform interrogation were performed of the lower extremity veins, bilaterally, with compression and augmentation maneuvers. INDICATION: Bilateral leg bruising and discoloration. FINDINGS: The lower extremity veins from the common femoral veins to below the knee veins were examined with normal color-flow, compressibility and normal waveform demonstrated. The great saphenous vein bilaterally is patent. IMPRESSION: No evidence of DVT in either lower extremity. Dictated by: Dictated on workstation # [id number]
[2017-06-22 12:37] VITALS: BP 133/84
== END 2017-06-22 12:39 | disposition home or self-care (01) ==
LOC: EDUNIT# 10:36 → ER 10:38
DX: M79.604 Pain in right leg (principal); M79.605 Pain in left leg; F17.210 Nicotine dependence, cigarettes, uncomplicated; Z79.82 Long term (current) use of aspirin; Z98.890 Other specified postprocedural states
CPT/HCPCS: 36415; 80053; 82550; 82553; 83735; 84484; 85025; 85610; 85730; 93005; 93970

== ENCOUNTER → 2018-12-26 | Outpatient (CLI) | payer OTHER | LOC: CARD 09:27 | PROVIDERS: ATTEND Internal Medicine Cardiovascular Disease | DX: R94.31 Abnormal electrocardiogram [ECG] [EKG] (principal); I44.7 Left bundle-branch block, unspecified; R00.2 Palpitations; I45.6 Pre-excitation syndrome; I08.1 Rheumatic disorders of both mitral and tricuspid valves | CPT/HCPCS: 93306; 93351 ==

== ENCOUNTER 2019-11-16 00:14 | Emergency (ER) | payer OTHER ==
[~2019-11-16] VITALS: Ht 175 cm; Wt 76.9 kg
[2019-11-16] MEDS ORDERED: LACTATED RINGERS 1,000 ML IV STA (01:08)
--- NOTE | 2019-11-16 01:29 | ED General ---
General Chief Complaint: Head/Cervical Problems Stated Complaint: SHAKEY,LIGHT HEADED,BLOOD PRESSURE 147/73 HRT RATE Nursing Triage Note: RIGHT SIDED HEADACHE, FEELING LIGHT HEADED, SHAKEY WITH LEFT ARM TINGLING SINCE 219911/15/2019. Nursing Sepsis Screen: No Definite Risk History of Present Illness Date Seen by Provider: Nov 16, 2019 Time Seen by Provider: 01:00 Initial Comments Here with report of not feeling well and having hard time describing what he was feeling. States he felt shaky and weak. He checked his blood pressure and he felt that was pretty high in the 140s over 70s and he's had varying heart rates throughout this. 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 He's had 2 ablations which have apparently been successful but he still has. Patient and his heart rate including bradycardia and tachycardia. Tonight he noted that he was both as well. Denies fever or chills. Denies sore throat or runny nose. Denies chest pain but did have some extremity tingling. No problems with going to the bathroom. His heart doctor is Dr. Fields. He came here from work [facility] after he had just checked and and started feeling bad so he drove here from [facility]. Timing/Duration: 1-3 Hours, Changing Over Time Severity: Moderate Associated Systoms: No Chest Pain, No Cough, No Fever/Chills, No Nausea/Vomiting, No Shortness of Air; Weakness Allergies and Home Medications Allergies Coded Allergies: No Known Drug Allergies (Unverified , 04/15/17) Patient Home Medication List Home Medication List Reviewed: Yes Review of Systems Review of Systems Constitutional: see HPI; No chills, No fever EENTM: no symptoms reported Respiratory: no symptoms reported Cardiovascular: see HPI Gastrointestinal: No abdominal pain, No nausea, No vomiting Genitourinary: no symptoms reported Musculoskeletal: see HPI Skin: no symptoms reported Psychiatric/Neurological: See HPI Hematologic/Lymphatic: No Symptoms Reported All Other Systems Reviewed Negative Unless Noted: Yes Past Rnrjuwb-Yjsyzw-Rikjxs Hx Past Med/Social Hx: Reviewed Nursing Past Med/Soc Hx Patient Social History Alcohol Use: Occasionally Uses Recreational Drug Use: No Smoking Status: Current Everyday Smoker Type Used: Cigarettes 2nd Hand Smoke Exposure: Yes Recent Foreign Travel: No Contact w/Someone Who Travel: No Recent Infectious Disease Expo: No Recent Hopitalizations: No Physical Abuse: No Sexual Abuse: No Mistreated: No Fear: No Immunizations Up To Date Tetanus Booster (TDap): Unknown Seasonal Allergies Seasonal Allergies: No Past Medical History Surgeries: Yes (GANGLION CYST, CARDIAC ABLATION) Cardiac Respiratory: No Currently Using CPAP: No Currently Using BIPAP: No Cardiac: Yes (WPW) Neurological: No Genitourinary: No Gastrointestinal: No Musculoskeletal: No Endocrine: No HEENT: No Cancer: No Psychosocial: No Integumentary: No Blood Disorders: No Family Medical History Reviewed Nursing Family Hx Physical Exam Vital Signs Vital Signs - First Documented 11/16/19 00:23 Temp 36.7 Pulse 60 Resp 18 B/P (MAP) 124/72 (89) Pulse Ox 97 O2 Delivery Room Air Capillary Refill : Less Than 3 Seconds Height, Weight, BMI Height: 5'9.00" Weight: 180lbs. 0.0oz. 81.047482fe; 25.00 BMI Method:Stated General Appearance: No Apparent Distress, WD/WN HEENT: PERRL/EOMI, Pharynx Normal Neck: Non Tender, Supple Respiratory: Lungs Clear, Normal Breath Sounds Cardiovascular: Regular Rate, Rhythm, No Murmur, Other (variable rate and rhythm on the monitor) Gastrointestinal: Non Tender, Soft Back: Normal Inspection, No CVA Tenderness, No Vertebral Tenderness Extremity: Normal Range of Motion, Non Tender Neurologic/Psychiatric: Alert, Oriented x3 Skin: Normal Color, Warm/Dry Procedures/Interventions Patient Education: Explained Benefits, Explained Risks, Pt. Ack. Understanding Breath Sounds per Auscultation: Clear Heart Sounds per Auscultation: Irregular Airway Exam: Mouth opens >2 fingers, Neck Full Range of Motion, Visulation of Uvula Sedation Adminstration Time: 2024 Re-examination Time: 2039 Progress/Results/Core Measures Suspected Sepsis Recent Fever Within 48 Hours: No Infection Criteria Present: None New/Unexplained Altered Menta: No Sepsis Screen: No Definite Risk SIRS Temperature: Pulse: 60 Respiratory Rate: 18 Laboratory Tests 11/16/19 01:15: White Blood Count 7.8 Blood Pressure 124 /72 Mean: 89 Laboratory Tests 11/16/19 01:15: Creatinine 1.12, Platelet Count 246, Total Bilirubin 0.6 Results/Orders Lab Results Laboratory Tests Test 3/14/20 01:15 Range/Units White Blood Count 7.8 4.3-11.0 10^3/uL Red Blood Count 4.60 4.35-5.85 10^6/uL Hemoglobin 14.9 13.3-17.7 G/DL Hematocrit 43 40-54 % Mean Corpuscular Volume 94 80-99 FL Mean Corpuscular Hemoglobin 32 25-34 PG Mean Corpuscular Hemoglobin Concent 34 32-36 G/DL Red Cell Distribution Width 12.4 10.0-14.5 % Platelet Count 246 130-400 10^3/uL Mean Platelet Volume 10.7 H 7.4-10.4 FL Neutrophils (%) (Auto) 59 42-75 % Lymphocytes (%) (Auto) 31 12-44 % Monocytes (%) (Auto) 8 0-12 % Eosinophils (%) (Auto) 2 0-10 % Basophils (%) (Auto) 1 0-10 % Neutrophils # (Auto) 4.6 1.8-7.8 X 10^3 Lymphocytes # (Auto) 2.4 1.0-4.0 X 10^3 Monocytes # (Auto) 0.6 0.0-1.0 X 10^3 Eosinophils # (Auto) 0.1 0.0-0.3 10^3/uL Basophils # (Auto) 0.1 0.0-0.1 10^3/uL Sodium Level 140 135-145 MMOL/L Potassium Level 3.5 L 3.6-5.0 MMOL/L Chloride Level 106 98-107 MMOL/L Carbon Dioxide Level 21 21-32 MMOL/L Anion Gap 13 5-14 MMOL/L Blood Urea Nitrogen 11 7-18 MG/DL Creatinine 1.12 0.60-1.30 MG/DL Estimat Glomerular Filtration Rate > 60 BUN/Creatinine Ratio 10 Glucose Level 95 70-105 MG/DL Calcium Level 9.0 8.5-10.1 MG/DL Corrected Calcium 8.7 8.5-10.1 MG/DL Total Bilirubin 0.6 0.1-1.0 MG/DL Aspartate Amino Transf (AST/SGOT) 15 5-34 U/L Alanine Aminotransferase (ALT/SGPT) 10 0-55 U/L Alkaline Phosphatase 50 40-136 U/L Troponin I < 0.028 <0.028 NG/ML C-Reactive Protein High Sensitivity 0.04 0.00-0.50 MG/DL Total Protein 6.6 6.4-8.2 GM/DL Albumin 4.4 3.2-4.5 GM/DL TSH Sharp Testing 1.62 0.35-4.94 UIU/ML Micro Results Microbiology 11/16/19 Influenza Types A,B Antigen (RAFI) - Final, Complete My Orders Orders - BASILIA MG MD Cbc With Automated Diff (11/16/19 01:08) Comprehensive Metabolic Panel (11/16/19 01:08) Hs C Reactive Protein (11/16/19 01:08) Thyroid Analyzer (11/16/19 01:08) Troponin I (11/16/19 01:08) Ekg Tracing (11/16/19 01:08) Lactated Ringers (Lr 1000 Ml Iv Solution (11/16/19 01:08) Ed Iv/Invasive Line Start (11/16/19 01:08) Influenza A And B Antigens (11/16/19 01:30) Vital Signs/I&O 11/16/19 00:23 Temp 36.7 Pulse 60 Resp 18 B/P (MAP) 124/72 (89) Pulse Ox 97 O2 Delivery Room Air Capillary Refill : Less Than 3 Seconds Blood Pressure Mean: 89 Progress Note : Progress Note Seen and evaluated. IV, labs, EKG and LR 1 L bolus ordered. Monitor patient. 0220: No acute findings overall. Patient is about the same or maybe a little better. He does admit to being under quite a bit of stress this week and that may be part of the problem. No indication for admission. He will call Dr. Fields for follow-up. Discharged home with return precautions. Patient verbalize understanding instructions and agreement with plan. ECG Initial ECG Impression Date: Nov 16, 2019 Initial ECG Impression Time: 01:18 Initial ECG Rate: 75 Initial ECG Rhythm: Normal Sinus Initial ECG Impression: Normal Comment Sinus rhythm with normal axis. No evidence of ST elevation [place]. Similar to previous of 06/22/17. Interpreted by me. Departure Impression Primary Impression: Paroxysmal tachycardia, unspecified Disposition: 01 HOME, SELF-CARE Condition: Improved Departure-Patient Inst. Decision time for Depature: 02:21 Referrals: JESSICA FIELDS MD NO,LOCAL PHYSICIAN (PCP) Primary Care Physician Patient Instructions: Fatigue (DC), Tachycardia (DC) Add. Discharge Instructions: All discharge instructions reviewed with patient and/or family. Voiced understanding. Get some rest and drink plenty of fluids and eat a normal diet. Call Dr. Fields's office on Monday for recheck and further evaluation. Return for chest pain, breathing problems, weakness, persistent high heart rate or low heart rate or other concerns as needed. Copy Copies To 1: JESSICA FIELDS MD, TIMOTHY D MD Nov 16, 2019 01:29
[2019-11-16 01:33] LABS: BASOPHILS # (AUTO) 0.1 10^3/uL (0.0-0.1); BASOPHILS % (AUTO) 1 % (0-10); EOSINOPHILS # (AUTO) 0.1 10^3/uL (0.0-0.3); EOSINOPHILS % (AUTO) 2 % (0-10); HEMATOCRIT 43 % (40-54); HEMOGLOBIN 14.9 G/DL (13.3-17.7); LYMPHOCYTES # (AUTO) 2.4 X 10^3 (1.0-4.0); LYMPHOCYTES % (AUTO) 31 % (12-44); MEAN CORPUSCULAR HEMOGLOBIN 32 PG (25-34); MEAN CORPUSCULAR HGB CONC 34 G/DL (32-36); MEAN CORPUSCULAR VOLUME 94 FL (80-99); MEAN PLATELET VOLUME 10.7 FL (7.4-10.4); MONOCYTES # (AUTO) 0.6 X 10^3 (0.0-1.0); MONOCYTES % (AUTO) 8 % (0-12); NEUTROPHILS # (AUTO) 4.6 X 10^3 (1.8-7.8); NEUTROPHILS % (AUTO) 59 % (42-75); PLATELET COUNT 246 10^3/uL (130-400); RED CELL DISTRIBUTION WIDTH 12.4 % (10.0-14.5); WHITE BLOOD COUNT 7.8 10^3/uL (4.3-11.0)
[2019-11-16 01:51] LABS: ALANINE AMINOTRANSFERASE 10 U/L (0-55); ALBUMIN 4.4 GM/DL (3.2-4.5); ALKALINE PHOSPHATASE 50 U/L (40-136); BILIRUBIN,TOTAL 0.6 MG/DL (0.1-1.0); BUN/CREATININE RATIO 10; CARBON DIOXIDE 21 MMOL/L (21-32); CHLORIDE 106 MMOL/L (98-107); CREATININE SERUM 1.12 MG/DL (0.60-1.30); GFR ESTIMATED > 60; GLUCOSE 95 MG/DL (70-105); POTASSIUM 3.5 MMOL/L (3.6-5.0); SODIUM 140 MMOL/L (135-145); TOTAL PROTEIN 6.6 GM/DL (6.4-8.2)
[2019-11-16 02:12] LABS: TSH (THYROID ANALYZER) 1.62 UIU/ML (0.35-4.94)
[2019-11-16 02:42] VITALS: BP 109/80
--- OUTSIDE RECORDS SUMMARY | 2019-11-17 17:30 | XMS REPORT | Clinical Summary ---
Author Author [facility] Organization [facility] Address Unknown Phone Unavailable Care Team Providers Care Icu Specialist Name Role Phone Gary Fields MD PCP Source Comments Some departments are not documenting in the electronic medical record. If you d o not see the information that you expected, contact Release of Information in [facility] [employer] Information Management department at [phone] for further assistan ce in locating additional records.[facility] Allergies No Known Allergies Medications No known medications Active Problems Problem Noted Date Currently smokes tobacco 12/18/2017 Paroxysmal atrial fibrillation 09/01/2017 SVT (supraventricular tachycardia) 05/31/2017 Overview: 12/31/18 -Via [facility]: Stress echo: Neg ative for ischemia. EF 55-65% A-fib 05/31/2017 WPW (Qocip-Yibxuzzfs-Dtznv syndrome) 05/23/2017 Overview: March 2017 - Hospitalized for wide compl ex tachycardia, cardioversion. Continue to have daily episodes of palp itations and tachycardia lasting several minutes each. Family History Medical History Relation Name Comments Other Father Myocardio bridge Relation Name Status Comments Father Alive Mother Alive Social History Date Tobacco Use Types Packs/Day Years Used Current Every Day Smoker Cigarettes 1 Smokeless Tobacco: Never Used Drinks/Week oz/Week Comments Alcohol Use No Sex Assigned at Date Recorded Not on file Industry Job Start Date Occupation Not on file Not on file Not on file Travel End Travel History Travel Start No recent travel history available. Last Filed Vital Signs Reading Time Taken Comments Vital Sign 130/80 09/14/2018 1:38 PM ALLOCATION ANALYST Blood Pressure 90 09/14/2018 1:38 PM ALLOCATION ANALYST Pulse 36.7 C (98.1 F) 12/20/2017 8:37 AM CDT Temperature - - Respiratory Rate 96% 12/20/2017 8:37 AM CDT Oxygen Saturation - - Inhaled Oxygen Concentration 81.6 kg (180 lb) 11/02/2018 3:14 PM ALLOCATION ANALYST Weight 175.3 cm (5' 9") 11/02/2018 3:14 PM ALLOCATION ANALYST Height 26.58 11/02/2018 3:14 PM ALLOCATION ANALYST Body Mass Index Plan of Treatment Health Maintenance Due Date Last Done Comments DTAP/TDAP VACCINES (1 - 1993 Tdap) HIV SCREENING 1997 PHYSICAL (COMPREHENSIVE) 2000 EXAM INFLUENZA VACCINE 04/04/2019 Results Not on filefrom Last 3 Months Insurance Type Payer Benefit Subscriber ID Effective Phone Address Plan / Dates Group PPO [facility] xxxxxxxxxx [id number] HEALTH-AET resent NA PPO/MC Advance 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 needed 06/15/2017 12:35 PM Full Code 06/14/2017 9:18 AM Provider has discussed Code Status No, more discussi on w/Patient or Family? needed
--- OUTSIDE RECORDS SUMMARY | 2019-11-17 17:31 | XMS REPORT ---
Author Author [employer] Organization [employer] Address [address] [address] Care Team Providers Care Warehouse Lead Name Role Phone NO, LOCAL PHYSICIAN Unavailable Unavailable HENRY VIRK PROCUREMENT AGENT Unavailable Unavailable JESSICA HUDSON MD Unavailable Unavailable PCP, NONE Unavailable Unavailable NO, LOCAL PHYSICIAN PCP Unavailable Allergies Normalized Allergy Reported Date of Reaction(s) Care Provider Facility Allergy Type classification allergen Allergy Onset DA (13 Unclassified No Known Drug 04-15-2017 - no information JESSICA HUDSON , Not Available sources.) Allergies (45183) Medications Medication Ingredient Drug Dose Dates Status Sig Sig Care Class(es) (Normalized) (Original) Provid er aspirin 81 Aspirin Platelet Active no Aspirin no mg delayed Aggregation information Active 81 name release Inhibitor, ORAL (no oral tablet Nonsteroida phone) (1 source.) l Anti-inflam matory Drug Problems Active Problems Problem Normalized Date of Normalized Normalized Provider Fac ility Classification Problem(s) Problem Problem Problem Sta tus Onset/Resoluti Duration on Other correction Episodic Active HENRY SULLY Not Availabl e aftercare (4 (current) use (75436) sources.) of aspirin Substance-rela Nicotine Chronic Active HENRY SULLY Not Avai lable kathya disorders dependence, (90283) (4 sources.) cigarettes, uncomplicated Other Pain in left Episodic Active HENRY SULLY Not Avail able connective leg (77690) tissue disease (4 sources.) Other Pain in right Episodic Active HENRY SULLY Not Avai lable connective leg (52598) tissue disease (7 sources.) Conduction Pre-excitation Chronic Active JESSICA HUDSON , N ot Available disorders (13 syndrome (28424) sources.) Translations: [ LEFT BUNDLE-BRANCH BLOCK, UNSPECIFIED, PRE-EXCITATION SYNDROME] Heart valve Rheumatic Chronic Active JESSICA HUDSON , Not A vailable disorders (3 disorders of (89260) sources.) both mitral and tricuspid valves Past or Other Problems Problem Normalized Date of Normalized Normalized Provider Fac ility Classification Problem(s) Problem Problem Problem Sta tus Onset/Resoluti Duration on Other Abnormal Episodic Completed JESSICA HUDSON , Not Avai lable screening for electrocardiog (43441) suspected hannah [ECG] conditions [EKG] (not mental disorders or infectious disease) (3 sources.) Nonspecific Other chest Episodic Completed JESSICA HUDSON , Not Available chest pain (4 pain (94581) sources.) Unclassified Other no information no information HENRY SULLY Not Available (4 sources.) specified (01794) postprocedural states Cardiac Tachycardia, Episodic Completed JESSICA HUDSON , Not Available dysrhythmias unspecified (97164) (6 sources.) Translations: [ PALPITATIONS] Unclassified Tobacco use Episodic Completed JESSICA HUDSON , No t Available (2 sources.) (02739) Cardiac Ventricular Chronic Completed CAT Not Availa ble dysrhythmias tachycardia HARDY-ANDERSO (67809) (4 sources.) Translations: PORTIA Ray [ PALPITATIONS] Procedures Procedure Normalized Procedure Procedure Result Performer Facility Date 11-16-2019 Electrocardiographic no information no name (no melvi ne) [facility] ([address]) Immunizations The data below is from unstructured sources Immunization Event Date Not Given Reason Dose Number Pharmaceutical Compounding Supervisor Lot Number Vaccine Information Statement (VIS) Deta il Results The data below is from unstructured sourcesNo known relevant diagnostic tests and/or laboratory data. Vital Signs The data below is from unstructured sources Vital Response Date/Time Temperature (Fahrenheit) 97.4 degree s F (97.6 - 99.5) 04/16/2017 10:12am Temperature (Calculated Celsius) 36. 75182 degrees C (36.4 - 37.5) 04/16/2017 8:00am Temperature Source Tympanic 04/16/2017 10:12am Pulse Rate (adult) 76 bpm (60 - 90) 04/16/2017 10:12am Respiratory Rate 18 bpm (12 - 24) 04/16/2017 10:12am O2 Sat by Pulse Oximetry 94 % (88 - 100) 04/16/2017 10:12am Blood Pressure 110/75 mm Hg 04/16/2017 10:12am Blood Pressure Mean 87 mm Hg 04/16/2017 8:00am Pain Numeric Pain Scale 0-No Pain 04/16/2017 8:00am Pain Intensity 0 2016 7:49pm Height (Feet) 5 feet 08/2017 9:43pm Height (Inches) 9.00 inches 04/15/2017 9:43pm Height (Calculated Centimeters) 175. 142746 cm 04/15/2017 9:43pm Weight (Pounds) 182 pounds 04/16/2017 6:28am Weight (Ounces) 0.0 oz 0 04/16/2017 6:28am Weight (Calculated Grams) 45612.812 gm 04/16/2017 6:28am Weight (Calculated Kilograms) 82.553 812 kilograms 04/16/2017 6:28am Calculated BMI 26.9 04/04 9:43pm Weight Method Stated 08/2017 7:36pm Capillary Refill Capillary Refill Less Than 3 Seconds 04/15/2017 7:36pm Vital Reading Result Col lection Date/Time Vital Reading Result Col lection Date/Time Interventions No Information Plan of Treatment Normalized Care Care Detail Care Activity Date Care Provider F acility Activity Patient Education no information no information LOCAL NO [facility] ([id number]) Patient referral no information no information LOCAL NO [facility] ([id number]) Goals Patient Goal Desired Goal no information no information Social History Normalized Code Original Code Date Value Tobacco smoking status Tobacco smoking status no information Smokes tobacco daily DEIS NHIS (finding) no information no information 11-16-2019 Occasionally Us es no information no information 11-16-2019 No no information no information 11-16-2019 Denies no information no information 11-16-2019 Current Everyda y Smoker no information no information 11-16-2019 Cigarettes Sex Assigned At Sex Assigned At no information M michael Functional Status No Information Mental Status Status Assessment Result Care Provider Facility Cognitive function Comprehension Ability LOCAL NO [facility] ([address]) Encounters Encounter Normalized Encounter Encounter Diagnosis Care Provi lisa Organization Date Type 11-16-2019 Emergency department no information (no phone) [facility] - patient visit Hospital (no phone) 11-16-2019 06-22-2017 Emergency department no information no name (no melvi ne) no organization name - patient visit (no phone) 06-22-2017 04-15-2017 Emergency department no information no name (no melvi ne) no organization name patient visit (no phone) 05-30-2017 Patient encounter no information no name (no phone) no organization name (no phone) 04-09-2019 Patient encounter no information no name (no phone) no organization name procedure (no phone) 03-26-2019 Patient encounter no information no name (no phone) no organization name procedure (no phone) 03-20-2019 Patient encounter no information no name (no phone) no organization name procedure (no phone) 12-26-2018 Patient encounter no information no name (no phone) no organization name procedure (no phone) 05-17-2017 Patient encounter no information no name (no phone) no organization name procedure (no phone) 04-15-2017 Patient encounter no information no name (no phone) no organization name - procedure (no phone) 04-16-2017 no information Encounter for no name (no phone) no organiza tion name preprocedural (no phone) laboratory examination Medical Equipment The data below is from unstructured sourcesNo Medical Equipment Information available Payers Normalized Payer Value Unknown no information ([id number]) Evaluation note Note Type Note Facility Evaluation No Assessments Information Available [facility] note [facility] ([id number]) Advance Directives Directive Response Recor ded Date/Time Advance Directives No 9:43pm Resuscitation Status Full Code 04/15/17 9:43pm Advance Directive Response Recorded Date/Time Advance Directives No Ma [facility] 2019 12:23am Resuscitation Status Full Code November 16, 2019 12:23am Discharge Instructions No hospital discharge instruction information available.No hospital discharge instruction information available. Chief Complaint and Reason for Visit Chief Complaint Head/Cervical Proble ms Reason for Visit [id number] Additional Source Comments This clinical document has been generated using [employer] software that has been certified by the Office of the National Coordinator for Health Information Technology (ONC 15.99.04.3023.Diam.31.00.0.619078) and the National Committee for [employer] (NCQA, as an eMeasure certified technology). FOR RECORDS PERTAINING TO PATIENTS WHO ARE OR HAVE BEEN ENROLLED IN A CHEMICAL D EPENDENCY/SUBSTANCE ABUSE PROGRAM, SOME INFORMATION MAY BE OMITTED. This clinica l summary was aggregated from multiple sources. Caution should be exercised in using it in the provision of clinical care. This summary normalizes information from multiple sources, and as a consequence, information in this document may ma terially change the coding, format and clinical context of patient data. In kellee tion, data may be omitted in some cases. CLINICAL DECISIONS SHOULD BE BASED ON T HE PRIMARY CLINICAL RECORDS. [facility]. provides no warranty or guara ntee of the accuracy or completeness of information in this document.The followi ng information is based on time limited clinical information
--- OUTSIDE RECORDS SUMMARY | 2019-11-17 17:31 | XMS REPORT | Continuity of Care Document ---
Author Organization Unknown Address Unknown Phone Unavailable Allergies Active Description Code Type Severity Reaction Onset Reported/Identified Relationship to Patient Clinical Status Yes No Known Drug Allergies [id number] Drug Allergy Unknown N/A 04/15/2017 Medications There is no data. Problems Date Dx Coded Attending Type Code Diagnosis Diagnosed By 04/16/2017 JESSICA HUDSON MD, Ot I45. 6 PRE-EXCITATION SYNDROME 04/16/2017 JESSICA HUDSON MD Ot R00. 0 TACHYCARDIA, UNSPECIFIED 04/16/2017 JESSICA HUDSON MD Ot R00. 2 PALPITATIONS 04/16/2017 JESSICA HUDSON MD Ot R07. 89 OTHER CHEST PAIN 04/16/2017 JESSICA HUDSON MD Ot Z72. 0 TOBACCO USE 05/18/2017 CAT TALLEY Ot I45.6 PRE-EXCITATION SYNDROME 05/18/2017 CAT TALLEY Ot I47.2 VENTRICULAR TACHYCARDIA 05/18/2017 CAT TALLEY Ot R00.2 PALPITATIONS 05/18/2017 CAT TALLEY Ot R07.89 OTHER CHEST PAIN 06/06/2017 CAT TALLEY Ot I45.6 PRE-EXCITATION SYNDROME 06/06/2017 CAT TALLEY Ot I47.2 VENTRICULAR TACHYCARDIA 06/06/2017 CAT TALLEY Ot R00.2 PALPITATIONS 06/06/2017 CAT TALLEY Ot R07.89 OTHER CHEST PAIN 06/20/2017 GUI DOS SANTOS MD Ot I45. 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 6 PRE-EXCITATION SYNDROME 09/27/2018 RAYA WATSON, GUI Conteh Ot Z01.812 ENCOUNTER FOR PREPROCEDURAL LABORATORY E 11/01/2018 GUI DOS SANTOS MD Ot I45. 6 PRE-EXCITATION SYNDROME 11/01/2018 RAYA WATSON, GUI Conteh Ot Z01.812 ENCOUNTER FOR PREPROCEDURAL LABORATORY E 12/27/2018 JESSICA HUDSON MD Ot I08. 1 RHEUMATIC DISORDERS OF BOTH MITRAL AND T 12/27/2018 JESSICA UHDSON MD Ot I44. 7 LEFT BUNDLE-BRANCH BLOCK, UNSPECIFIED 12/27/2018 JESSICA HUDSON MD Ot I45. 6 PRE-EXCITATION SYNDROME 12/27/2018 JESSICA HUDSON MD Ot R00. 2 PALPITATIONS 12/27/2018 JESSICA HUDSON MD Ot R94. 31 ABNORMAL ELECTROCARDIOGRAM [ECG] [EKG] 01/01/2019 JESSICA HUDSON MD Ot I08. 1 RHEUMATIC DISORDERS OF BOTH MITRAL AND T 01/01/2019 JESSICA HUDSON MD Ot I44. 7 LEFT BUNDLE-BRANCH BLOCK, UNSPECIFIED 01/01/2019 JESSICA HUDSON MD Ot I45. 6 PRE-EXCITATION SYNDROME 01/01/2019 JESSICA HUDSON MD Ot R00. 2 PALPITATIONS 01/01/2019 JESSICA HUDSON MD Ot R94. 31 ABNORMAL ELECTROCARDIOGRAM [ECG] [EKG] 02/07/2019 JESSICA HUDSON MD Ot I08. 1 RHEUMATIC DISORDERS OF BOTH MITRAL AND T 02/07/2019 JESSICA HUDSON MD Ot I44. 7 LEFT BUNDLE-BRANCH BLOCK, UNSPECIFIED 02/07/2019 JESSICA HUDSON MD Ot I45. 6 PRE-EXCITATION SYNDROME 02/07/2019 JESSICA HUDSON MD Ot R00. 2 PALPITATIONS 02/07/2019 JESSICA HUDSON MD Ot R94. 31 ABNORMAL ELECTROCARDIOGRAM [ECG] [EKG] Procedures There is no data. Results Test Result Range Complete blood count (CBC) with automate d white blood cell (WBC) differential - 04/15/17 19:44 Blood leukocytes automated count (number/volume) 10.2 10*3/uL 4.3-11.0 Blood erythrocytes automated count (number/volume) 5.26 10*6/uL 4.35-5.85 Venous blood hemoglobin measurement (mass/volume) 16.5 g/dL 13.3-17.7 Blood hematocrit (volume fraction) 48 % 40-54 Automated erythrocyte mean corpuscular volume 91 [ foz_us] 80-99 Automated erythrocyte mean corpuscular h emoglobin (mass per erythrocyte) 31 pg 25-34 Automated erythrocyte mean corpuscular h emoglobin concentration measurement (mass/volume) 35 g/dL 32-36 Automated erythrocyte distribution width ratio 12. 6 % 10.0- 14.5 Automated blood platelet count (count/volume) 297 10*3/uL 130-400 Automated blood platelet mean volume measurement 10.9 [foz_us] 7.4-10.4 Automated blood neutrophils/100 leukocytes 56 % 42-75 Automated blood lymphocytes/100 leukocytes 30 % 12-44 Blood monocytes/100 leukocytes 10 % 0-12 Automated blood eosinophils/100 leukocytes 3 % 0-10 Automated blood basophils/100 leukocytes 1 % 0-10 Blood neutrophils automated count (number/volume) 5.6 10*3 1.8-7.8 Blood lymphocytes automated count (number/volume) 3.1 10*3 1.0-4.0 Blood monocytes automated count (number/volume) 1. 0 10*3 0.0-1.0 Automated eosinophil count 0.3 10*3/uL 0 .0-0.3 Automated blood basophil count (count/volume) 0.1 10*3/uL 0.0-0.1 Comprehensive metabolic panel - 04/15/17 19:44 Serum or plasma sodium measurement (moles/volume) 140 mmol/L 135-145 Serum or plasma potassium measurement (moles/volume) 4.3 mmol/L 3.6-5.0 Serum or plasma chloride measurement (moles/volume) 105 mmol/L 98-107 Carbon dioxide 23 mmol/L 21-32 Serum or plasma anion gap determination (moles/volume) 12 mmol/L 5-14 Serum or plasma urea nitrogen measurement (mass/volume ) 15 mg/dL 7-18 Serum or plasma creatinine measurement (mass/volume) 1.34 mg/dL 0.60-1.30 Serum or plasma urea nitrogen/creatinine mass ratio 11 NRG Serum or plasma creatinine measurement w ith calculation of estimated glomerular filtration rate > NRG Serum or plasma glucose measurement (mass/volume) 96 mg/dL 70-105 Serum or plasma calcium measurement (mass/volume) 10.2 mg/dL 8.5-10.1 Serum or plasma total bilirubin measurement (mass/volu me) 1.1 mg/dL 0.1-1.0 Serum or plasma alkaline phosphatase deanna surement (enzymatic activity/volume) 61 U/L 40-136 Serum or plasma aspartate aminotransfera se measurement (enzymatic activity/volume) 18 U/L 5-34 Serum or plasma alanine aminotransferase measurement (enzymatic activity/volume) 14 U/L 0-55 Serum or plasma protein measurement (mass/volume) 7.4 g/dL 6.4-8.2 Serum or plasma albumin measurement (mass/volume) 4.7 g/dL 3.2-4.5 Magnesium - 04/15/17 19:44 Magnesium 2.1 mg/dL 1.8-2.4 Serum or plasma troponin i.cardiac measu rement (mass/volume) - 04/15/17 19:44 Serum or plasma troponin i.cardiac measurement (mass/v olume) < ng/mL <0.30 THYROID STIMULATING HORMONE - 04/15/17 1 9:44 THYROID STIMULATING HORMONE 1.58 u[iU]/mL 0.35-4.94 Complete blood count (CBC) with automate d white blood cell (WBC) differential - 04/16/17 04:55 Blood leukocytes automated count (number/volume) 7.7 10*3/uL 4.3-11.0 Blood erythrocytes automated count (number/volume) 4.10 10*6/uL 4.35-5.85 Venous blood hemoglobin measurement (mass/volume) 13.1 g/dL 13.3-17.7 Blood hematocrit (volume fraction) 38 % 40-54 Automated erythrocyte mean corpuscular volume 93 [ foz_us] 80-99 Automated erythrocyte mean corpuscular h emoglobin (mass per erythrocyte) 32 pg 25-34 Automated erythrocyte mean corpuscular h emoglobin concentration measurement (mass/volume) 34 g/dL 32-36 Automated erythrocyte distribution width ratio 12. 6 % 10.0- 14.5 Automated blood platelet count (count/volume) 223 10*3/uL 130-400 Automated blood platelet mean volume measurement 11.3 [foz_us] 7.4-10.4 Automated blood neutrophils/100 leukocytes 50 % 42-75 Automated blood lymphocytes/100 leukocytes 39 % 12-44 Blood monocytes/100 leukocytes 7 % 0-12 Automated blood eosinophils/100 leukocytes 4 % 0-10 Automated blood basophils/100 leukocytes 1 % 0-10 Blood neutrophils automated count (number/volume) 3.8 10*3 1.8-7.8 Blood lymphocytes automated count (number/volume) 3.0 10*3 1.0-4.0 Blood monocytes automated count (number/volume) 0. 5 10*3 0.0-1.0 Automated eosinophil count 0.3 10*3/uL 0 .0-0.3 Automated blood basophil count (count/volume) 0.0 10*3/uL 0.0-0.1 Whole blood basic metabolic panel - 04/04 11/18 04:55 Serum or plasma sodium measurement (moles/volume) 141 mmol/L 135-145 Serum or plasma potassium measurement (moles/volume) 3.8 mmol/L 3.6-5.0 Serum or plasma chloride measurement (moles/volume) 110 mmol/L 98-107 Carbon dioxide 21 mmol/L 21-32 Serum or plasma anion gap determination (moles/volume) 10 mmol/L 5-14 Serum or plasma urea nitrogen measurement (mass/volume ) 17 mg/dL 7-18 Serum or plasma creatinine measurement (mass/volume) 0.98 mg/dL 0.60-1.30 Serum or plasma urea nitrogen/creatinine mass ratio 17 NRG Serum or plasma creatinine measurement w ith calculation of estimated glomerular filtration rate > NRG Serum or plasma glucose measurement (mass/volume) 111 mg/dL 70-105 Serum or plasma calcium measurement (mass/volume) 8.1 mg/dL 8.5-10.1 Serum or plasma troponin i.cardiac measu rement (mass/volume) - 04/16/17 04:55 Serum or plasma troponin i.cardiac measurement (mass/v olume) < ng/mL <0.30 Automated blood complete blood count (he mogram) panel - 05/30/17 10:10 Blood leukocytes automated count (number/volume) 10.1 10*3/uL 4.3-11.0 Blood erythrocytes automated count (number/volume) 4.72 10*6/uL 4.35-5.85 Venous blood hemoglobin measurement (mass/volume) 14.9 g/dL 13.3-17.7 Blood hematocrit (volume fraction) 44 % 40-54 Automated erythrocyte mean corpuscular volume 93 [ foz_us] 80-99 Automated erythrocyte mean corpuscular h emoglobin (mass per erythrocyte) 32 pg 25-34 Automated erythrocyte mean corpuscular h emoglobin concentration measurement (mass/volume) 34 g/dL 32-36 Automated erythrocyte distribution width ratio 12. 5 % 10.0- 14.5 Automated blood platelet count (count/volume) 272 10*3/uL 130-400 Automated blood platelet mean volume measurement 10.0 [foz_us] 7.4-10.4 Whole blood basic metabolic panel - 05/06 02/18 10:10 Serum or plasma sodium measurement (moles/volume) 142 mmol/L 135-145 Serum or plasma potassium measurement (moles/volume) 4.0 mmol/L 3.6-5.0 Serum or plasma chloride measurement (moles/volume) 106 mmol/L 98-107 Carbon dioxide 27 mmol/L 21-32 Serum or plasma anion gap determination (moles/volume) 9 mmol/L 5-14 Serum or plasma urea nitrogen measurement (mass/volume ) 13 mg/dL 7-18 Serum or plasma creatinine measurement (mass/volume) 1.11 mg/dL 0.60-1.30 Serum or plasma urea nitrogen/creatinine mass ratio 12 NRG Serum or plasma creatinine measurement w ith calculation of estimated glomerular filtration rate > NRG Serum or plasma glucose measurement (mass/volume) 69 mg/dL 70-105 Serum or plasma calcium measurement (mass/volume) 9.4 mg/dL 8.5-10.1 Magnesium - 05/30/17 10:10 Magnesium 2.0 mg/dL 1.8-2.4 Complete blood count (CBC) with automate d white blood cell (WBC) differential - 06/22/17 11:48 Blood leukocytes automated count (number/volume) 7.5 10*3/uL 4.3-11.0 Blood erythrocytes automated count (number/volume) 4.86 10*6/uL 4.35-5.85 Venous blood hemoglobin measurement (mass/volume) 15.2 g/dL 13.3-17.7 Blood hematocrit (volume fraction) 44 % 40-54 Automated erythrocyte mean corpuscular volume 91 [ foz_us] 80-99 Automated erythrocyte mean corpuscular h emoglobin (mass per erythrocyte) 31 pg 25-34 Automated erythrocyte mean corpuscular h emoglobin concentration measurement (mass/volume) 34 g/dL 32-36 Automated erythrocyte distribution width ratio 12. 2 % 10.0- 14.5 Automated blood platelet count (count/volume) 273 10*3/uL 130-400 Automated blood platelet mean volume measurement 10.2 [foz_us] 7.4-10.4 Automated blood neutrophils/100 leukocytes 59 % 42-75 Automated blood lymphocytes/100 leukocytes 29 % 12-44 Blood monocytes/100 leukocytes 9 % 0-12 Automated blood eosinophils/100 leukocytes 3 % 0-10 Automated blood basophils/100 leukocytes 1 % 0-10 Blood neutrophils automated count (number/volume) 4.4 10*3 1.8-7.8 Blood lymphocytes automated count (number/volume) 2.1 10*3 1.0-4.0 Blood monocytes automated count (number/volume) 0. 6 10*3 0.0-1.0 Automated eosinophil count 0.3 10*3/uL 0 .0-0.3 Automated blood basophil count (count/volume) 0.1 10*3/uL 0.0-0.1 PT panel in platelet poor plasma by coag ulation assay - 06/22/17 11:48 Prothrombin time (PT) in platelet poor plasma by coagu lation assay 13.1 s 12.2-14.7 INR in platelet poor plasma or blood by coagulation as say 1.0 0.8-1.4 Activated partial thromboplastin time (a PTT) in platelet poor plasma bycoagulation assay - 06/22/17 11:48 Activated partial thromboplastin time (a PTT) in platelet poor plasma bycoagulation assay 39 s 24-35 Comprehensive metabolic panel - 06/22/17 11:48 Serum or plasma sodium measurement (moles/volume) 137 mmol/L 135-145 Serum or plasma potassium measurement (moles/volume) 4.4 mmol/L 3.6-5.0 Serum or plasma chloride measurement (moles/volume) 104 mmol/L 98-107 Carbon dioxide 29 mmol/L 21-32 Serum or plasma anion gap determination (moles/volume) 4 mmol/L 5-14 Serum or plasma urea nitrogen measurement (mass/volume ) 9 mg/dL 7-18 Serum or plasma creatinine measurement (mass/volume) 1.11 mg/dL 0.60-1.30 Serum or plasma urea nitrogen/creatinine mass ratio 8 NRG Serum or plasma creatinine measurement w ith calculation of estimated glomerular filtration rate > NRG Serum or plasma glucose measurement (mass/volume) 97 mg/dL 70-105 Serum or plasma calcium measurement (mass/volume) 9.4 mg/dL 8.5-10.1 Serum or plasma total bilirubin measurement (mass/volu me) 0.4 mg/dL 0.1-1.0 Serum or plasma alkaline phosphatase deanna surement (enzymatic activity/volume) 59 U/L 40-136 Serum or plasma aspartate aminotransfera se measurement (enzymatic activity/volume) 24 U/L 5-34 Serum or plasma alanine aminotransferase measurement (enzymatic activity/volume) 25 U/L 0-55 Serum or plasma protein measurement (mass/volume) 7.2 g/dL 6.4-8.2 Serum or plasma albumin measurement (mass/volume) 4.3 g/dL 3.2-4.5 Magnesium - 06/22/17 11:48 Magnesium 2.0 mg/dL 1.8-2.4 Serum or plasma creatine kinase measurem ent (enzymatic activity/volume) - 06/22/17 11:48 Serum or plasma creatine kinase measurem ent (enzymatic activity/volume) 77 U/L 30-200 Serum or plasma creatine kinase MB measu rement (enzymatic activity/volume) - 06/22/17 11:48 Serum or plasma creatine kinase MB measu rement (enzymatic activity/volume) 0.3 ng/mL <6.6 Serum or plasma troponin i.cardiac measu rement (mass/volume) - 06/22/17 11:48 Serum or plasma troponin i.cardiac measurement (mass/v olume) < ng/mL <0.30 Complete blood count (CBC) with automate d white blood cell (WBC) differential - 11/16/19 01:15 Blood leukocytes automated count (number/volume) 7.8 10*3/uL 4.3-11.0 Blood erythrocytes automated count (number/volume) 4.60 10*6/uL 4.35-5.85 Venous blood hemoglobin measurement (mass/volume) 14.9 g/dL 13.3-17.7 Blood hematocrit (volume fraction) 43 % 40-54 Automated erythrocyte mean corpuscular volume 94 [ foz_us] 80-99 Automated erythrocyte mean corpuscular h emoglobin (mass per erythrocyte) 32 pg 25-34 Automated erythrocyte mean corpuscular h emoglobin concentration measurement (mass/volume) 34 g/dL 32-36 Automated erythrocyte distribution width ratio 12. 4 % 10.0- 14.5 Automated blood platelet count (count/volume) 246 10*3/uL 130-400 Automated blood platelet mean volume measurement 10.7 [foz_us] 7.4-10.4 Automated blood neutrophils/100 leukocytes 59 % 42-75 Automated blood lymphocytes/100 leukocytes 31 % 12-44 Blood monocytes/100 leukocytes 8 % 0-12 Automated blood eosinophils/100 leukocytes 2 % 0-10 Automated blood basophils/100 leukocytes 1 % 0-10 Blood neutrophils automated count (number/volume) 4.6 10*3 1.8-7.8 Blood lymphocytes automated count (number/volume) 2.4 10*3 1.0-4.0 Blood monocytes automated count (number/volume) 0. 6 10*3 0.0-1.0 Automated eosinophil count 0.1 10*3/uL 0 .0-0.3 Automated blood basophil count (count/volume) 0.1 10*3/uL 0.0-0.1 Comprehensive metabolic panel - 11/16/19 01:15 Serum or plasma sodium measurement (moles/volume) 140 mmol/L 135-145 Serum or plasma potassium measurement (moles/volume) 3.5 mmol/L 3.6-5.0 Serum or plasma chloride measurement (moles/volume) 106 mmol/L 98-107 Carbon dioxide 21 mmol/L 21-32 Serum or plasma anion gap determination (moles/volume) 13 mmol/L 5-14 Serum or plasma urea nitrogen measurement (mass/volume ) 11 mg/dL 7-18 Serum or plasma creatinine measurement (mass/volume) 1.12 mg/dL 0.60-1.30 Serum or plasma urea nitrogen/creatinine mass ratio 10 NRG Serum or plasma creatinine measurement w ith calculation of estimated glomerular filtration rate > NRG Serum or plasma glucose measurement (mass/volume) 95 mg/dL 70-105 Serum or plasma calcium measurement (mass/volume) 9.0 mg/dL 8.5-10.1 Serum or plasma total bilirubin measurement (mass/volu me) 0.6 mg/dL 0.1-1.0 Serum or plasma alkaline phosphatase deanna surement (enzymatic activity/volume) 50 U/L 40-136 Serum or plasma aspartate aminotransfera se measurement (enzymatic activity/volume) 15 U/L 5-34 Serum or plasma alanine aminotransferase measurement (enzymatic activity/volume) 10 U/L 0-55 Serum or plasma protein measurement (mass/volume) 6.6 g/dL 6.4-8.2 Serum or plasma albumin measurement (mass/volume) 4.4 g/dL 3.2-4.5 CALCIUM CORRECTED 8.7 mg/dL 8.5-10.1 Serum or plasma troponin i.cardiac measu rement (mass/volume) - 11/16/19 01:15 Serum or plasma troponin i.cardiac measurement (mass/v olume) < ng/mL <0.028 Serum or plasma thyrotropin measurement by detection limit <=0.05 miu/l (units/volume) - 11/16/19 01:15 Serum or plasma thyrotropin measurement by detection limit <=0.05 miu/l (units/volume) 1.62 u[iU]/mL 0.35-4.94 Serum or plasma C reactive protein measu rement (mass/volume) - 11/16/19 01:15 Serum or plasma C reactive protein measurement (mass/v olume) 0.04 mg/dL 0.00-0.50 Influenza virus A and B antigen detectio n - 11/16/19 01:35 FLU RESULT NEGATIVE FOR INFLUENZA A AND B ANTIGENS BY IA NRG Influenza virus A and B antigen detection TESTING BY LS NR Encounters ACCT No. Visit Date/Time Discharge Status Pt. 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
== END 2019-11-16 02:45 | disposition home or self-care (01) ==
LOC: EDUNIT# 00:14 → ER 00:19
DX: I47.9 Paroxysmal tachycardia, unspecified (principal); F17.210 Nicotine dependence, cigarettes, uncomplicated
CPT/HCPCS: 36415; 80053; 84443; 84484; 85025; 86141; 87804; 93005; 93041

== ENCOUNTER → 2022-08-11 | Outpatient (CLI) | payer OTHER ==
--- NOTE | 2022-08-11 15:49 | Diagnostic Imaging Report ---
PROCEDURE: US Scrotum. TECHNIQUE: Multiple real-time grayscale images were obtained over the scrotum in various projections bilaterally. INDICATION: Bilateral epididymal cysts. Right testicle measures 4.5 x 2.6 x 3.2 cm and the left testicle measures 4.3 x 2.3 x 3.0 cm. Both testes show homogeneous echotexture. No testicular masses identified. There is blood flow to both testes. There appear to be epididymal head cysts on the right, largest measuring 2.2 x 1.6 cm. There is an approximately 4 mm left epididymal head cyst. There is a small left hydrocele which does show some internal complexity. No right-sided hydrocele is seen. There is no varicocele. IMPRESSION: 1. No evidence of testicular mass or vascular compromise. 2. Bilateral epididymal cysts, largest on the right measuring 2.2 cm. 3. Complex left hydrocele. Dictated by: Dictated on workstation # [id number]
== END ==
LOC: RAD 14:45
PROVIDERS: ATTEND Urology
DX: N50.3 Cyst of epididymis (principal)
CPT/HCPCS: 76870

== ENCOUNTER 2022-08-17 05:35 | Outpatient (CLI) | payer OTHER ==
[~2022-08-17] VITALS: Ht 175.3 cm; Wt 81.8 kg
[2022-08-19] MEDS ORDERED: CEPH500T PO ×2 (13:04→13:08)
[2022-08-19] MEDS ORDERED: OXYC1TAB11 PO (13:07)
== END 2022-08-17 14:36 ==
LOC: PREOP 05:35
PROVIDERS: ATTEND Urology
DX: Z01.818 Encounter for other preprocedural examination (principal); N50.3 Cyst of epididymis

== ENCOUNTER 2022-08-19 14:22 | Outpatient (RCR) | payer OTHER ==
[~2022-08-19] VITALS: Ht 175.3 cm; Wt 81.8 kg
[2022-08-19] VITALS (11 sets, daily range): BP systolic 111–136; BP diastolic 76–89
--- NOTE | 2022-08-19 08:52 | Progress Note-Pre Operative ---
Pre-Operative Progress Note Date of Available H&P: Aug 19, 2022 Date H&P Reviewed: Aug 19, 2022 Time H&P Reviewed: 12:09 Changes from last HP NONE Pre-Operative Diagnosis: RT EPIDIDYMAL CYSTS ANSELMO HIDALGO MD Aug 19, 2022 08:52
--- NOTE | 2022-08-19 08:53 | Progress Note-Post Operative ---
Post-Operative Progess Note Surgeon (s)/Scalder (s) Surgeon ANSELMO HIDALGO MD Scalder: NONE Pre-Operative Diagnosis RT EPIDIDYMAL CYSTS Post-Operative Diagnosis RT SPERMATIC CORD CYSTS Procedure & Operative Findings Date of Procedure 08/19/22 Procedure Performed/Findings RT SCROTAL EXPLORATION AND EXCISION OF RT SPERMATIC CORD CYSTS Anesthesia Type GENERAL Estimated Blood Loss Estimated blood loss (mL): NEGLIGIBLE Specimens/Packing Specimens Removed RT SPERMATIC CORD CYSTS Packin/# FABIANA DRAIN ANSELMO HIDALGO MD Aug 19, 2022 08:52
--- NOTE | 2022-08-19 08:55 | Discharge Inst-Urology ---
Discharge Inst-Urology Reconcile Patient Problems Problems Reviewed?: Yes Final Diagnosis RT EPIDIDYMAL CYSTS Patient Instructions/Follow Up Plan/Assessment/Instructions Please make appointment to been seen in office in 2 weeks. Rest till then and wear scrotal support Come to outpatient surgery tomorrow 9am to DC drain Ice to Rt scrotum in RR and at home for 6 hours and then PRN Showers, no baths Increase oral fluids for 48 hours and then as needed. Diet as tolerated. If questions or concerns contact your physician Or seek help at emergency department. ANSELMO HIDALGO MD Aug 19, 2022 08:55
[2022-08-19] MEDS: LACTATED RINGERS 1,000 ML IV PRN ×2 (11:00→13:10)
[~2022-08-19 14:22] MED LIST changes: +CEPH500T PO; +HYDROmorphone 2 MG/ML VIAL (DILAUDID) IV ONE; +HYDROmorphone 2 MG/ML VIAL (DILAUDID) ONE; +KETAMINE 50 MG/5 ML SYRINGE ONE; +KETOROLAC 30 MG/ML VIAL ONE; +LIDOCAINE PF 2% 5 ML (XYLOCAINE) VIAL ONE; +MIDAZOLAM 2 MG/2 ML (VERSED) VIAL ONE; +ONDANSETRON 4 MG/2 ML (SDV) Z0FRAN IVP PRN; +ONDANSETRON 4 MG/2 ML (SDV) Z0FRAN ONE; +OXYC1TAB11 PO; +ROCURONIUM 10 MG/ML 5 ML SYRINGE IV ONE; +SEVOFLURANE (ULTANE) 15 ML INHAL SOLN ONE; +ceFAZolin INJECTION 1,000 MG in NS (IVPB) 50 ML IV ONE; +fentaNYL INJ 100 MCG/2 ML AMP ONE; +proPOfol 200 MG/20 ML (DIPRIVAN) VIAL IV ONE
[2022-08-19] MEDS ORDERED: oxyCODONE/APAP 5/325MG (PERCOCET 5) TABLET ONE (14:51)
[2022-08-19] MEDS ORDERED: oxyCODONE/APAP 5/325MG (PERCOCET 5) TABLET PO ONE (15:00)
--- NOTE | 2022-08-19 21:55 | Anesthesia-General Post-Op ---
General Patient Condition Mental Status/LOC: Same as Preop Cardiovascular: Satisfactory Nausea/Vomiting: Absent Respiratory: Satisfactory Pain: Controlled Complications: Absent Post Op Complications Complications None Follow Up Care/Instructions Patient Instructions None needed. Anesthesia/Patient Condition Patient Condition Patient is doing well, no complaints, stable vital signs, no apparent adverse anesthesia problems. No complications reported per nursing. D/C home per [facility] Criteria: Yes JOSR AGUILAR CRNA Aug 19, 2022 21:54
--- NOTE | 2022-08-20 01:12 | OPERATIVE REPORT ---
DATE OF SERVICE: 08/19/2022 PREOPERATIVE DIAGNOSIS: Right epididymal cyst. POSTOPERATIVE DIAGNOSIS: Right spermatic cord cyst. PROCEDURE PERFORMED: Right scrotal exploration with excision of multiple right spermatic cord cyst. SURGEON: Zac Hidalgo MD. ANESTHESIA: General. COMPLICATIONS: None. DESCRIPTION OF PROCEDURE: Under satisfactory general anesthesia, the patient in supine position, genitalia, abdomen and thighs were prepped and draped in the usual sterile fashion. An incision was made in the median raphe, carried through the right scrotal compartment. Bleeders were cauterized or ligated with 4-0 chromic catgut sutures. The testicle, epididymis and appendages were delivered into the wound. The testicle was smaller than usual, but healthy looking and the epididymis was normal and healthy. Multiple different sized cysts were found in the spermatic cord all along unrelated to the epididymis. They were all carefully dissected and excised intact. The edges were sutured with 4-0 chromic catgut for hemostasis and prevention of recurrence. There was no more cyst to remove and hemostasis was complete. The epididymis, vascularity and the testicle looked healthy. They were replaced into the scrotal compartment that was drained with a quarter of an inch [place] drain brought through a separate stab wound at the bottom of the scrotum, secured in position with a 3-0 chromic catgut suture. Closure was performed in 2 layers. The dartos with a running 3-0 chromic catgut avoiding the drain and the skin with interrupted 4-0 Vicryl. Needle and sponge counts correct x2. ESTIMATED BLOOD LOSS: Negligible, none of which was replaced. Fluffs, scrotal support was applied. The patient tolerated the procedure and anesthesia well and was sent to recovery room in stable condition. Instructions were given to the and preoperatively to the patient. Job ID: [id number] DocumentID: [id number] Dictated Date: 08/19/2022 14:26:52 Mold Dumper Date: 08/20/2022 01:10:00 Dictated By: ZAC HIDALGO MD
== END 2022-09-03 | disposition home or self-care (01) ==
LOC: SDC 14:22
PROVIDERS: ATTEND Urology
DX: N50.3 Cyst of epididymis (principal)
CPT/HCPCS: 87081; 88304